=== PATIENT | male | born 1960 | race Caucasian/White ===

== ENCOUNTER 2016-07-26 15:32 | Inpatient (IN) | payer OTHER ==
[2016-07-26] VITALS (12 sets, daily range): BP systolic 88–171; BP diastolic 31–66; PULSE 80–122; RESP 16–30; O2SAT 90–95
[~2016-07-26] VITALS: Ht 200.7 cm; Wt 134.0 kg
[2016-07-26] MEDS ORDERED: 0.9% Sodium Chloride 1,000 ML IV ONE ×3 (15:43→18:15)
[2016-07-26 15:58] LABS: BASOPHILS % (AUTO) 0.2 % (0-3); EOSINOPHILS % (AUTO) 0 % (0-5); MONOCYTES % (AUTO) 4.8 % (4-12); Mean Corpuscular Hemoglobin 29.3 pg (27.0-35.0); NEUTROPHILS % (AUTO) 88.4 % (40-74); Platelet Count 152 bil/L (150-400)
--- NOTE | 2016-07-26 16:15 | ED.REPORT ---
HPI-General Illness Date of Service Jul 26, 2016 ED Provider: José Antonio Bucio MD This is a 66 year male with a history of DM sent to the emergency department from the [facility] clinic via EMS due to confusion. He was found in the [place] parking lot confused and "unsteady." Pt visited the [place] for evaluation of R foot ulceration. Pt reports fever and chills that began yesterday evening. Denies cough, nausea, vomiting, dysuria, or pain. Interview is limited due to confusion. Medical records indicate pt was admitted to [facility] on 07/07-07/12/2016 with osteomyelitis in left foot, treated surgically with left foot 5th ray resection. Treated in hospital with vancomycin and Zosyn, transitioned to Levaquin, and was discharged on Levaquin. Sent from outpatient clinic today with chills overnight and noted to be "unsteady" and with a inflamed R big toe. Nursing Notes Stated Complaint: SEPTIC Chief Complaint: General Complaint Nursing Notes Reviewed: Yes Allergies: Coded Allergies: morphine (Unverified Allergy, Intermediate, severe itching, 07/26/16) Scheduled Atorvastatin Calcium (Atorvastatin Calcium) 20 Mg Tablet 20 MG PO HS Gabapentin (Gabapentin) 600 Mg Tablet 600 MG PO TID Glipizide (Glipizide) 10 Mg Tablet 10 MG PO BID Hydrochlorothiazide (Hydrochlorothiazide) 25 Mg Tablet 25 MG PO DAILY Lisinopril (Lisinopril) 20 Mg Tablet 20 MG PO DAILY Metformin (Glucophage) 1,000 Mg Tablet 1,000 MG PO BID General Time Seen by MD: 15:43 Chief Complaint Other Hx Obtained From: Patient, EMS Arrived By: Ambulance Sudden in Onset?: Yes Onset Occurred: 1 - 15 minutes ago Symptom Duration: Since onset Severity: Current: No pain currently Pertinent Negative: Pt denies other symptoms Recent Healthcare: No recent hospitalization, Recent doctor visit Similar Sx Previous: No Past Medical History Past Medical History Reports: Diabetes mellitus Review of Systems Full Review of Systems Constitutional: Reports: Chills, Fever Cardiovascular: Denies: Chest pain GI: Denies: Abdominal pain, Nausea, Vomiting Male: Denies Dysuria Musculoskeletal: Reports: Extremity pain, Denies: Back pain Complete sys rev & neg: except as marked. Physical Exam Vital Signs Vital Signs Date Time Temp Pulse Resp B/P Pulse Ox O2 Delivery O2 Flow Rate FiO2 07/26/16 20:44 37.6 97 25 88/46 95 Nasal Cannula 1.5 07/26/16 20:06 80 07/26/16 17:30 113 27 103/31 93 Room Air 07/26/16 17:00 116 149/48 07/26/16 16:30 121 30 171/66 07/26/16 16:00 120 25 147/55 92 Nasal Cannula 2 07/26/16 15:43 39.0 122 30 150/48 90 Room Air 07/26/16 15:35 122 27 150/48 90 Room Air Initial VS: Reviewed Head / Eyes: Atraumatic, Normocephalic, PERRL ENT: Mucous membranes moist, Conjunctiva normal, No scleral icterus Neck: Supple, Non-tender, Full range of motion Cardiovascular: Regular rate & rhythm, Heart sounds normal, Intact distal pulses Abdomen / GI: Soft, Non-tender, No guarding, No rebound, No distention Extremities: Vascular intact, Neuro intact, No swelling, No tenderness Skin: Warm, Dry, No cyanosis Neurologic: Alert General/Constitutional: Awake Confused and drowsy Respiratory / Chest: No wheezing Rales / Rhonchi: Positive: Rales bilateral bases Abdomen: Non-tender, BS normoactive obese Ankle / Foot: Neurologic intact L foot has post operative changes with amputation of fifth toe, warm and neurovascularly intact. R foot: erythema at base of great and second toe, area is warm with ulcer at the base of R great toe. R foot has decreased sensation, pulses intact Interpretation & Diagnostics Interpretation & Diagnostics: NEGATIVE FOR INFLUENZA TYPE A AND B CHEST X-RAY IMPRESSION: Low volume inspiration with accentuation of pulmonary markings bilaterally. No focal consolidation. Dictated by: Rufino Perez M.D. on 07/26/2016 at 16:54 Approved by: Rufino Perez M.D. on 07/26/2016 at 16:55 R FOOT X-RAY IMPRESSION: 1. Cortical erosion and associated lucency within the medial 1st distal phalanx high suspicious for osteomyelitis. 2. Mildly displaced fracture at the base of the 1st distal phalanx medially. 3. Soft tissue swelling compatible with cellulitis given clinical history with suggestion of soft tissue gas. Dictated by: Chucho Servin M.D. on 07/26/2016 at 17:30 Approved by: Chucho Servin M.D. on 07/26/2016 at 17:33 Lab Results Interpretation Result Diagram: 07/26/16 1545 07/26/16 1545 Test 07/26/16 15:45 07/26/16 18:44 07/26/16 20:07 White Blood Count 8.6th/mm3 (3.8-10.1) Red Blood Count 4.54mil/mm3 (4.40-5.80) Hemoglobin 13.3g/dL (13.8-17.2) Hematocrit 39.5% (41.0-50.0) Mean Corpuscular Volume 87.0fL (81-100) Mean Corpuscular Hemoglobin 29.3pg (27.0-35.0) Mean Corpuscular Hemoglobin Concent 33.7% (32.0-37.0) Red Cell Distribution Width 13.3% (12.3-15.4) Platelet Count 152bil/L (150-400) Neutrophils (%) (Auto) 88.4% (40-74) Lymphocytes (%) (Auto) 6.4% (14-46) Monocytes (%) (Auto) 4.8% (4-12) Eosinophils (%) (Auto) 0% (0-5) Basophils (%) (Auto) 0.2% (0-3) Erythrocyte Sedimentation Rate 35mm/hr (0-30) Sodium Level 131mEq/L (134-144) Potassium Level 4.0mEq/L (3.5-5.2) Chloride Level 91mEq/L (97-108) Carbon Dioxide Level 18mmol/L (18-29) Blood Urea Nitrogen 18mg/dL (6-24) Creatinine 1.13mg/dL (0.76-1.27) Estimat Glomerular Filtration Rate 71mL/min (>59) Glucose Level 366mg/dL (60-99) Calcium Level 9.2mg/dL (8.5-10.1) Phosphorus Level 2.4mg/dL (2.5-4.9) Magnesium Level 1.4mg/dL (1.6-2.6) Total Bilirubin 0.6mg/dL (0.0-1.2) Aspartate Amino Transf (AST/SGOT) 20U/L (0-50) Alanine Aminotransferase (ALT/SGPT) 22U/L (0-44) Alkaline Phosphatase 79U/L (25-150) Troponin T < 0.010ug/L (0.0-0.011) Pro-B-Type Natriuretic Peptide 471.4pg/mL (0-210) Total Protein 7.3g/dL (6.4-8.4) Albumin 4.3g/dL (3.4-5.0) Urine Color Yellow (YELLOW) Urine Appearance Clear (CLEAR,HAZY) Urine pH 5.5 (5.0-8.0) Urine Specific [place] 1.025 (1.003-1.035) Urine Protein 30mg/dL (NEG,TRACE) Urine Glucose (UA) 1000mg/dL (NEGATIVE) Urine Ketones 15mg/dL (NEGATIVE) Urine Occult Blood Negative (NEGATIVE) Urine Nitrite Negative (NEGATIVE) Urine Bilirubin Negative (NEGATIVE) Urine Urobilinogen Normalmg/dL (NORMAL) Urine Leukocyte Esterase Negative (NEGATIVE) Urine RBC 0-2/hpf (0-2) Urine WBC 0-5/hpf (0-5) Urine Epithelial Cells None/hpf (NONE-MOD) Urine Crystals None seen (NONE SEEN) Urine Bacteria None/hpf (NONE-FEW) Urine Hyaline Casts None/lpf (NONE) Urine Granular Casts None seen (NONE SEEN) Urine Waxy Casts None seen (NONE SEEN) Urine Red Blood Cell Casts None seen (NONE SEEN) Urine White Blood Cell Casts None seen (NONE SEEN) Urine Mucus None seen (None Seen) Urine Trichomonas None seen (NONE SEEN) Urine Yeast None (NONE SEEN) Urinalysis Comment None Urine Culture Reflexed Not indicated Lactic Acid Level 2.3mmol/L (0.4-2.0) ECG Interpretation ECG Interpretation: sinus tachycardia at a rate of [address] depression no acute ST elevation Time: 16:31 Interpreted by: ED physician Re-Eval/Medical Decision Med Decision/Clinical Course Sepsis with R foot osteo as source. IV NS 2L bolus and then started at 250/hr. Blood cultures obtained, vanco and zosyn started. remained normotensive, Repeat lactate improved. Time of Eval: 17:45 Re-Evaluation/Progress Note: Discussed lab and imaging results. Time of Eval: 18:13 Re-Evaluation/Progress Note: Counseled on plan for admission, pt understands and agrees with plan, all questions addressed. Consultation #1: Referral / Consult Name: Fredy Brush Sung DPM Call Returned at: 19:05 Cupola Patcher Helper: Agrees with eval, Agrees with plan Note: Consult with concrete mixer operator helper Consultation #2: Referral / Consult Name: Diallo Ballesteros MD Consulted With: Hospitalist Call Returned at: 19:41 Cupola Patcher Helper: Accepts admit Counseled Regarding: Diagnosis, Lab results, Need for follow-up, Need for admission Discharge & Departure Primary Impression: Osteomyelitis of ankle or foot, right, acute Additional Impression: Sepsis Sepsis type: sepsis due to unspecified organism Qualified Code: A41.9 - Sepsis, unspecified organism Disposition: ADMITTED TO HOSPITAL Discharge Condition All VS Reviewed: Yes Condition: Stable Scribe Attestation Portions of this note were transcribed by Kris Law. I, Dr. Bucio personally performed the history, physical exam and medical decision-making; I reviewed and confirmed the accuracy of the information in the transcribed note. Signed by Marya Gardner, 07/26/2016 at 18:00. José Antonio Bucio MD Jul 26, 2016 16:15 KRIS LAW Jul 26, 2016 16:31
[2016-07-26 16:26] LABS: TROPONIN T < 0.010 ug/L (0.0-0.011)
[2016-07-26 16:36] LABS: Magnesium 1.4 mg/dL (1.6-2.6); Phosphorus 2.4 mg/dL (2.5-4.9)
[2016-07-26 16:37] LABS: ERYTHROCYTE SEDIMENTATION RATE 35 mm/hr (0-30)
--- NOTE | 2016-07-26 16:57 | DRSVH ---
PROCEDURE: X-RAY CHEST ONE VIEW, PORTABLE ([id number]) INDICATIONS: septic TECHNIQUE: One view of the chest was acquired. COMPARISON: None. FINDINGS: Surgical changes and devices: None. Lungs and pleura: No pleural effusions or pneumothorax. Lungs are clear. Mediastinum: Mediastinal contours appear normal. Heart size is normal. Bones and chest wall: No suspicious bony lesions. Overlying soft tissues appear unremarkable. IMPRESSION: Low volume inspiration with accentuation of pulmonary markings bilaterally. No focal cons olidation. Dictated by: Rufino Perez M.D. on 07/26/2016 at 16:54 Approved by: Rufino Perez M.D. on 07/26/2016 at 16:55
[2016-07-26] MEDS ORDERED: Vancomycin Inj 1,000 MG in IV Premix 1 EACH IV ONE (17:00)
[2016-07-26] MEDS ORDERED: Piperacillin-Tazo 3.375 Gm Inj 3.375 GM in Dextrose 5% Minibag Plus 50 ML IV ONE (17:00)
[2016-07-26] MEDS ORDERED: (U-500) Insulin Regluar, Human 500 Unit/mL Syringe SUBQ ONE (17:35)
--- NOTE | 2016-07-26 17:39 | DRSVH ---
PROCEDURE: X-RAY RIGHT FOOT COMPLETE, MINIMUM THREE VIEWS ([id number]) INDICATIONS: R great toe infected/ Diabetic TECHNIQUE: 3 views of the foot were acquired. COMPARISON: None. FINDINGS: Bones: Evaluation limited due to motion artifact and incomplete inclusion of the 1st distal phalanx o n the AP view. There is cortical erosion and lucency along the medial aspect of the 1st distal phala nx suspicious for osteomyelitis. There is also an associated mildly displaced fracture along the med ial aspect of the base of the 1st distal phalanx extending to the 1st interphalangeal joint. Soft tissues: There is soft tissue swelling of the great toe with suggestion of soft tissue gas demo nstrated medially. IMPRESSION: 1. Cortical erosion and associated lucency within the medial 1st distal phalanx high suspicious for osteomyelitis. 2. Mildly displaced fracture at the base of the 1st distal phalanx medially. 3. Soft tissue swelling compatible with cellulitis given clinical history with suggestion of soft ti ssue gas. Dictated by: Chucho Servin M.D. on 07/26/2016 at 17:30 Approved by: Chucho Servin M.D. on 07/26/2016 at 17:33
[2016-07-26] MEDS ORDERED: Insulin Human REGular (HUMulin-R) 100 Unit/mL 10 mL SUBQ ONE (17:50)
[2016-07-26] MEDS ORDERED: Insulin Human REGular-Omnicell 100 Unit/mL SUBQ ONE (18:25)
[2016-07-26 19:11] LABS: APPEARANCE,URINE CLEAR (CLEAR,HAZY); COLOR,URINE YELLOW (YELLOW); OCCULT BLOOD,URINE NEGATIVE (NEGATIVE); PH,URINE 5.5 (5.0-8.0); UROBILINOGEN,URINE NORMAL (NORMAL)
[2016-07-26] MEDS ORDERED: 0.9% Sodium Chloride 1,000 ML IV SCH (19:53)
[2016-07-26] MEDS ORDERED: Alum-Mag Hydrox-Simeth 30 mL Suspension PO PRN (19:55)
[2016-07-26] MEDS ORDERED: Vancomycin Dose per Pharmacist XX SCH (19:55)
[2016-07-26] MEDS ORDERED: Ondansetron 2 mg/mL 2 mL Inj IVPUSH PRN (19:55)
[2016-07-26] MEDS ORDERED: Polyethylene Glycol (PEG) 17 Gm Powder PO PRN (19:55)
[2016-07-26] MEDS ORDERED: Magnesium Sulf 4 Gm/100 mL H2O 4 GM in IV Premix 1 EACH IV ONE (20:00)
--- NOTE | 2016-07-26 20:57 | PCM.HPMED ---
Subjective Date of Service Jul 26, 2016 Primary Provider: Admitting Physician: Primary Care Physician: Other,Physician Attending Physician: Admit Status: From the Emergency Department Chief Complaint: Right foot ulceration History of Present Illness: Patient is a pleasant 66 year male with a history of DM2 and HTN, sent to the emergency department from the [facility] clinic via EMS due to confusion. He was found in the [place] parking lot confused and "unsteady." Pt visited the [place] for evaluation of R foot ulceration, which patient states was doing fine after being recently discharged from [facility] hospital, but started to swell up a day ago. Associated symptoms of fever and chills that began yesterday evening. Denies cough, nausea , vomiting, dysuria, or pain. Patient states when he had his operation on his left foot for osteomyelitis with left foot 5th ray resection, at [facility] on -07/12/2016. Treated in hospital with vancomycin and Zosyn, transitioned to Levaquin, and was discharged on 10 day course of Levaquin. At that time, they took a xray of his right foot and told him it there was no infection and thus no intervention was necessary. Patient was sent from outpatient clinic today noted for chills overnight being "unsteady" with a inflamed R big toe. Patient apparently continued to be confused upon initial arrival to [facility], mentation improved and was fully alert and oriented at the time of this interview. In the ED, vitals T39, P122, RR30, BP 150/48, 90% on RA. Labs significant for Lactic acid 4.4, ESR 35, Glu 366. R foot Xray showed "Cortical erosion and associated lucency within the medial 1st distal phalanx high suspicious for osteomyelitis." Podiatry, Dr. Brush was consulted, will see in am. Review of Systems: All ROS reviewed and negative otherwise noted in HPI. Allergies Coded Allergies: morphine (Verified Allergy, Intermediate, severe itching, 07/26/16) Home Medications Metformin 1000mg PO BID Glipizide 10mg PO BID Lisinopril 20mg PO daily HCTZ 25mg PO daily Atorvastatin 20mg PO daily Gabapentin 300mg cap, 2 caps TID Medications confirmed with patient and at home from Rx bottles PMH DM2 HTN Diabetic neuropathy Surgical History Left ankle and great toe Jhonathan 2012 Left 5th ray resection for osteomyelitis [facility] Jun 2016 Family History Mother side has DM2 Social History Hx Alcohol Use: Yes (3-4 beers a week) Hx Substance Use: No Hx Tobacco Use: Yes Smoking Status: Former Smoker (quit 5 years ago 10ppd) Living Arrangement: with Family Exam Vital Signs Vital Sign - Last Date Time Temp Pulse Resp B/P Pulse Ox O2 Delivery O2 Flow Rate FiO2 07/26/16 17:30 113 27 103/31 93 Room Air 07/26/16 16:00 2 07/26/16 15:43 39.0 Exam GEN: Alert and oriented, NAD HEENT: NC/AT, PERRL, EOMI, sclera anicteric Neck: supple with full ROM, trachea at midline CV: RRR, normal S1, S2, no murmurs, rubs or gallops, peripheral pulses intact with <3 sec cap refill Lungs: CTAB Skin: Dry, warm and intact, well healed surgical scar on medial left ankle, Significantly swollen right big toe with erythema and warmth, no rash Neuro: Loss of sensation at bilateral feet, decreased sensation at bilateral anterior shins Ext: Left 5th toe amputated, truncated left big toe Psych: normal mood and affect, normal speech Lab and Diagnostics Result Diagram: 07/26/16 1545 07/26/16 1545 X-Rays, CTs and MRIs Date of Service: 07/26/16 1543 PROCEDURE: X-RAY CHEST ONE VIEW, PORTABLE ([id number]) INDICATIONS: septic IMPRESSION: Low volume inspiration with accentuation of pulmonary markings bilaterally. No focal consolidation. Dictated by: Rufino Perez M.D. on 07/26/2016 at 16:54 Date of Service: 07/26/16 1608 PROCEDURE: X-RAY RIGHT FOOT COMPLETE, MINIMUM THREE VIEWS ([id number]) INDICATIONS: R great toe infected/ Diabetic IMPRESSION: 1. Cortical erosion and associated lucency within the medial 1st distal phalanx high suspicious for osteomyelitis 2. Mildly displaced fracture at the base of the 1st distal phalanx medially. 3. Soft tissue swelling compatible with cellulitis given clinical history with suggestion of soft tissue gas. Dictated by: Chucho Servin M.D. on 07/26/2016 at 17:30 Assessment & Plan Patient is a 66 year male with a history of DM2 and HTN, sent to the emergency department from the [facility] via EMS due to confusion. He was found in the [place] parking lot confused and "unsteady." Pt visited the [place] for evaluation of R foot ulceration, which patient states was doing fine after being recently discharged from [facility] hospital, but started to swell up a day ago. Pt reports fever and chills that began yesterday evening. Sepsis (T39, P122, RR30) with osteomyelitis of right toe as source of infection , present on admission. Acute. - BCx pending - Vancomycin and Zosyn started in ED, will continue - trend lactic acid - IVF - keep oxygen above 92% DKA, present on admission. Acute. - 4L NS given in ED - IVF Metabolic acidosis, present on admission. Acute. - Anion gap 22, mostly due to lactic acidosis, DKA present - IVF as above - trending lactic acid - high dose correctional insulin protocol Osteomyelitis of right big toe, present on admission. Acute - Xray showed "Cortical erosion and associated lucency within the medial 1st distal phalanx high suspicious for osteomyelitis. Mildly displaced fracture at the base of the 1st distal phalanx medially. Soft tissue swelling compatible with cellulitis given clinical history with suggestion of soft tissue gas." - podiatry consulted from ED, patient to be seen in am - MR foot ordered - NPO Chronic conditions: Diabetes mellitus, type 2 - metformin and glipizide held - high dose correctional insulin protocol - A1c pending (patient reports A1c of 10, 3 weeks ago) Diabetic neuropathy - continue gabapentin Hypertension - continue lisinopril and HCTZ - hold for systolic blood pressure below 130 PRNs - Acetaminophen as needed for mild pain/fever/headache - Bowel regimen as needed - Antiemetic as needed Patient admitted under inpatient status with expected length of stay greater than 2 midnights due to severity of presenting symptoms, risk of adverse event, and complexity of treatment plan. Pain Evaluation: Adequate Pain Control VTE Prophylaxis: Other (surgery tomorrow) VTE Mechanical Devices: Intermittant Pneumatic CD Resuscitation Status: CPR: Attempt Resuscitation Attending Statement The patient was seen and examined together with Dr. Degroot on 07/26 and I agree with the history, exam and plan as outlined in the note above. Stefan Degroot DO Jul 26, 2016 20:02 Diallo Ballesteros MD Jul 27, 2016 01:12
[2016-07-26] MEDS ORDERED: Glucose 40% Oral Gel 15 Gm Tube PO PRN (21:10)
[2016-07-26] MEDS ORDERED: LISI-567 PO (21:11)
[2016-07-26] MEDS ORDERED: HYDR25TA4 PO (21:11)
[2016-07-26] MEDS ORDERED: ATOR20TA65 PO (21:11)
[2016-07-26] MEDS ORDERED: METF1000 PO (21:11)
[2016-07-26] MEDS ORDERED: GABA600T2 PO (21:11)
[2016-07-26] MEDS ORDERED: GLIP10TA10 PO (21:11)
[2016-07-26] MEDS: 0.9% Sodium Chloride 1,000 ML IV SCH (21:40)
[2016-07-26] MEDS ORDERED: Insulin LISPRO 300 Unit/3 mL Inj SUBQ SCH (22:00)
[2016-07-27] VITALS (9 sets, daily range): BP systolic 116–136; BP diastolic 68–77; PULSE 94–99; RESP 16–18; O2SAT 90–97
[2016-07-27] MEDS: Sodium Chloride LOK Flush 10 mL Syringe IVFLUSH SCH ×6 (00:11→16:30)
[2016-07-27] MEDS ORDERED: GABA-502 PO (00:53)
[2016-07-27] MEDS ORDERED: 0.9% Sodium Chloride 50 ML ONE (01:17)
[2016-07-27] MEDS: Piperacillin-Tazo 3.375 Gm Inj 3.375 GM in Dextrose 5% Minibag Plus 50 ML IV SCH ×3 (01:26→17:15)
--- NOTE | 2016-07-27 01:49 | PCM.CONPHA ---
Assessment/Plan Assessment/Plan Pharmacy Kinetic Dosing Vancomycin Indication: SEPSIS WITH OSTEOMYELITIS OF RIGHT TOE Vanc goal trough: 10-15 mcg/mL Pt wt: 142.7 kg Other ABX: ZOSYN Cultures: Blood PENDING SCr: 1.13 mg/dL Assessment/Plan: - Loading dose of Vancomycin 1000 mg given in ED with additional 1500 mg given once patient reached the floor (20mg/kg dosing) -Will continue Vancomycin 2000 mg Q12H (15 mg/kg dosing) with trough scheduled prior to 4th dose on -Jul @ 0630 Pharmacy appreciates consult and will continue to monitor. Estela Beasley PharmD Jul 27, 2016 01:49
[2016-07-27] MEDS ORDERED: Glucose 40% Oral Gel 15 Gm Tube PO PRN ×2 (02:05→08:25)
[2016-07-27] MEDS ORDERED: Insulin LISPRO 300 Unit/3 mL Inj SUBQ SCH (02:30)
[2016-07-27] MEDS: 0.9% Sodium Chloride 1,000 ML IV SCH ×2 (05:54→14:55)
--- NOTE | 2016-07-27 05:59 | NUR ---
Admit/BP/Blood Sugar Pt admitted to room 2007 at around 2130, SBP low 90s, pt A&Ox3, ALST[place], bedrest d/t hypotension but moves well in bed. Pt able to answer admit questions, med rec done by pt interview and med list on faxed sheet from [place] facility. SBP remained low 90s and came up this morning to 110s-120s, pt up to BR then w/ SBA. Blood sugars mid 200s, aware, discussed starting non DKA insulin drip but instead ordered high dose sliding scale insulin w/ Q6 admin. Pt NPO in case of surgery. Frequent oral care w/ wet swabs done to help w/ dry mouth. No c/o pain, tele SR 90s.
[2016-07-27 06:44] LABS: BASOPHILS % (AUTO) 0.2 % (0-3); EOSINOPHILS % (AUTO) 0.3 % (0-5); Mean Corpuscular Hemoglobin 29.2 pg (27.0-35.0); Mean Corpuscular Volume 87.6 fL (81-100); NEUTROPHILS % (AUTO) 85.5 % (40-74); Platelet Count 138 bil/L (150-400)
[2016-07-27 07:35] LABS: Magnesium 2.3 mg/dL (1.6-2.6)
[2016-07-27] MEDS ORDERED: Insulin Human REGular Inj 100 UNIT in 0.9% Sodium Chloride-Pha MIX 100 ML IV SCH (07:36)
[2016-07-27] MEDS ORDERED: Dextrose 5% 0.45% NaCl 1,000 ML IV PRN (07:36)
[2016-07-27] MEDS: Linezolid Inj 600 MG in IV Premix 1 EACH IV SCH ×2 (09:18→20:40)
[2016-07-27] MEDS ORDERED: 0.9% Sodium Chloride 250 ML ONE (09:20)
[2016-07-27] MEDS: HYDROmorphone 1 mg/mL Inj IVPUSH PRN ×3 (10:51→20:36)
[2016-07-27] MEDS: Insulin LISPRO 300 Unit/3 mL Inj SUBQ SCH ×3 (12:04→20:52)
--- NOTE | 2016-07-27 12:59 | NUR ---
Podiatry/Diet Dr. Brush in to evaluate pt's R great toe; states infection is likely in the bone, ordered MRI; OR tomorrow or Monday, possible amputation of R great toe. Diabetic diet order placed per Dr. Morales. VSS.
--- NOTE | 2016-07-27 13:10 | PCM.CHPPOD ---
Subjective Date of service Jul 27, 2016 History of Present Illness 56-year-old male was admitted last evening for confusion, fever and diabetic foot infection. Patient states that he developed a blister on the right hallux as a result of new shoes approximately 3 weeks ago which subsequently became more severe and in the past week noted some swelling and redness in the great toe. He subsequently became systemically ill feeling in the past 2-3 days prompting his admission. Patient denies any recognized trauma to the right foot , he is aware that he is severely neuropathic and has undergone multiple surgeries on the left foot at the [facility] in [place] as result of ulcerations and osteomyelitis. Patient has had the first metatarsophalangeal joint resected and fifth digit amputated on the left. He states he is feeling improved since being admitted. He has a renewed appetite, no fever or chills at this time. Patient is seen in the presence of his Kristine. Patient is currently unemployed Reason for Consultation Confusion, fever ,diabetic foot infection right Allergy Allergies: Coded Allergies: morphine (Verified Allergy, Intermediate, severe itching, 07/26/16) Medications Atorvastatin Calcium (Atorvastatin Calcium) 20 Mg Tablet 20 MG PO HS Gabapentin (Gabapentin) 300 Mg Capsule 900 MG PO TID Glipizide (Glipizide) 10 Mg Tablet 10 MG PO BIDAC Hydrochlorothiazide (Hydrochlorothiazide) 25 Mg Tablet 25 MG PO DAILY Lisinopril (Lisinopril) 20 Mg Tablet 20 MG PO DAILY Metformin (Glucophage) 1,000 Mg Tablet 1,000 MG PO BID Past Medical History Surgeries: Yes (left elbow/hips, left amputation) Medical History: Surgical History: Social History Hx Alcohol Use: No Hx Substance Use: No Hx Tobacco Use: Yes Smoking Status: Former Smoker (quit 5 years ago 10ppd) Podiatry Consult Exam Vital Signs Vital Sign - Last Date Time Temp Pulse Resp B/P Pulse Ox O2 Delivery O2 Flow Rate FiO2 07/27/16 08:53 37.6 97 18 120/75 96 Room Air 07/26/16 21:34 1.5 Intake and Output 07/26/16 07/26/16 07/27/16 Cumulative From/Thru 15:00 23:00 07:00 07/26/16 15:43 - 07/27/16 06:08 Intake Total 1000 ml 1637 ml 2637 ml Output Total 550 ml 550 ml Balance 1000 ml 1087 ml 2087 ml Intake Oral 0 ml 0 ml IV Total 1000 ml 1637 ml 2637 ml Output Urine Total 550 ml 550 ml # Bowel Movements 0 0 Result Diagram: 07/27/1628 07/27/1628 Lab Test 07/26/16 15:45 07/26/16 18:44 07/27/16 00:45 07/27/16 06:28 Erythrocyte Sedimentation Rate 35mm/hr (0-30) Hemoglobin A1c 9.9% (4.8-5.6) Phosphorus Level 2.4mg/dL (2.5-4.9) Total Bilirubin 0.6mg/dL (0.0-1.2) Aspartate Amino Transf (AST/SGOT) 20U/L (0-50) Alanine Aminotransferase (ALT/SGPT) 22U/L (0-44) Alkaline Phosphatase 79U/L (25-150) Troponin T < 0.010ug/L (0.0-0.011) Pro-B-Type Natriuretic Peptide 471.4pg/mL (0-210) Total Protein 7.3g/dL (6.4-8.4) Albumin 4.3g/dL (3.4-5.0) Urine Color Yellow (YELLOW) Urine Appearance Clear (CLEAR,HAZY) Urine pH 5.5 (5.0-8.0) Urine Specific [place] 1.025 (1.003-1.035) Urine Protein 30mg/dL (NEG,TRACE) Urine Glucose (UA) 1000mg/dL (NEGATIVE) Urine Ketones 15mg/dL (NEGATIVE) Urine Occult Blood Negative (NEGATIVE) Urine Nitrite Negative (NEGATIVE) Urine Bilirubin Negative (NEGATIVE) Urine Urobilinogen Normalmg/dL (NORMAL) Urine Leukocyte Esterase Negative (NEGATIVE) Urine RBC 0-2/hpf (0-2) Urine WBC 0-5/hpf (0-5) Urine Epithelial Cells None/hpf (NONE-MOD) Urine Crystals None seen (NONE SEEN) Urine Bacteria None/hpf (NONE-FEW) Urine Hyaline Casts None/lpf (NONE) Urine Granular Casts None seen (NONE SEEN) Urine Waxy Casts None seen (NONE SEEN) Urine Red Blood Cell Casts None seen (NONE SEEN) Urine White Blood Cell Casts None seen (NONE SEEN) Urine Mucus None seen (None Seen) Urine Trichomonas None seen (NONE SEEN) Urine Yeast None (NONE SEEN) Urinalysis Comment None Urine Culture Reflexed Not indicated Lactic Acid Level 1.6mmol/L (0.4-2.0) White Blood Count 10.0th/mm3 (3.8-10.1) Red Blood Count 3.87mil/mm3 (4.40-5.80) Hemoglobin 11.3g/dL (13.8-17.2) Hematocrit 33.9% (41.0-50.0) Mean Corpuscular Volume 87.6fL (81-100) Mean Corpuscular Hemoglobin 29.2pg (27.0-35.0) Mean Corpuscular Hemoglobin Concent 33.3% (32.0-37.0) Red Cell Distribution Width 13.6% (12.3-15.4) Platelet Count 138bil/L (150-400) Neutrophils (%) (Auto) 85.5% (40-74) Lymphocytes (%) (Auto) 6.5% (14-46) Monocytes (%) (Auto) 7.0% (4-12) Eosinophils (%) (Auto) 0.3% (0-5) Basophils (%) (Auto) 0.2% (0-3) Sodium Level 135mEq/L (134-144) Potassium Level 4.3mEq/L (3.5-5.2) Chloride Level 100mEq/L (97-108) Carbon Dioxide Level 21mmol/L (18-29) Blood Urea Nitrogen 16mg/dL (6-24) Creatinine 0.93mg/dL (0.76-1.27) Estimat Glomerular Filtration Rate 89mL/min (>59) Glucose Level 223mg/dL (60-99) Calcium Level 7.9mg/dL (8.5-10.1) Magnesium Level 2.3mg/dL (1.6-2.6) Diagnostics Positive blood culture, identification pending., X-ray suggestive of osteomyelitis right hallux. Exam Lower Extremities: Right: Edema localized Extremity pink Extremity warm Lower Extremity Pulses: Palpable: Left Dorsalis Pedis Right Dorsalis Pedis Absent: Left Posterior Tibal Right Posterior Tibal Additional Information: Lower family reexam on the left shows a shortened flail hallux and amputated fifth digit, no open lesions, ulcerations or evidence of infection on the left. The right foot exhibits distal forefoot erythema edema and hyperemia. There is a large plantar medial hyperkeratotic lesion of the hallux at the IPJ level which is exuding a scant amount of purulent exudate. Upon sharp debridement of the hyperkeratotic tissue there is noted to be an 8 x 8 mm full-thickness ulceration which probes to bone. The toe is edematous but nonfluctuant and there does not appear to be any significant deep space abscess or proximal tracking of infection. Lesser digits show intact skin, skin of the heel is intact there are no other open lesions. There does appear to be some regression of erythema since patient admission. Upon review of x-ray there is ostial lysis of the distal tuft noted primarily on the oblique view however this does not correlate strongly with the site of the ulcer which is at the interphalangeal joint. I feel MRI is indicated, this apparently has been ordered, will await results to proceed with surgical planning. Assessment & Plan Assessment Osteomyelitis right hallux, cellulitis right hallux, severe peripheral neuropathy bilateral. Problems: Plan Discussed findings and probable need for hallux amputation with patient and his and they are understanding having been through a multitude of surgeries on the left foot previously. At this visit I did sharply debrided the hyperkeratotic lesion,, created an egress for purulent exudate, the site is copiously irrigated with saline, packed with gauze and dry dressing applied. Patient will continue on vancomycin and Zosyn pending results of deep swab cultures cultures which were taken today. I do not feel there is any urgency to present to the operating room today, therefore patient may eat and would anticipate scheduling as an add-on or early Monday pending OR availability. All patient questions were answered, he and his expressed understanding of the necessity for amputation and are comfortable with this eventuality. VTE Prophylaxis: Other (surgery tomorrow) VTE Mechanical Devices: Intermittant Pneumatic CD Fredy Brush DPM Jul 27, 2016 13:10
--- NOTE | 2016-07-27 15:45 | NUR ---
NUTRITION ASSESSMENT Assess: 56 yo M w/ DKA and left foot wound. Pt w/ multiple recent surgeries for his left foot. Per podiatry, pt will need a hallux amputation to be done or Monday. Pt states for a few days prior to admission he was eating very little. Him and his deny noticing any wt changes. He says his appetite has improved since being admitted. PMHx: DM 2, HTN, Diabetic neuropathy LABS: GLu 223, A1c 9.9, Ca 7.9 MEDICATIONS: Reviewed. 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 INTERVENTION: 1) Diabetic education provided 2/ and patient referred to [facility] outpatient diabetes program MONITOR/EVALUATE: PO intake, Labs, Wt, Nutrition status, POC. Will follow per moderate nutrition risk guidelines.
--- NOTE | 2016-07-27 17:17 | PCM.PNMED ---
Subjective Date of Service Jul 27, 2016 Subjective Patient is a pleasant 66 year male with a history of DM2 and HTN, right foot ulceration, sent to the emergency department from the [facility] via EMS due to confusion. Patient admitted for treatment of right distal first metatarsal osteomyelitis. Hospital Day 1 Overnight: no acute events reported\\ Today: patient reported that he has fever and chills that began yesterday evening, increased pain, redness, and swelling associated with a right big toe ulceration, and worsening confusion and gait instability today that has since cleared up. Patient denies fever, chills, confusion, diarrhea, dysuria, change in vision, myalgias. ROS negative except for mentioned above. Exam Vital Signs Vital Sign - Last Date Time Temp Pulse Resp B/P Pulse Ox O2 Delivery O2 Flow Rate FiO2 07/27/16 05:42 116/68 07/27/16 03:45 37.5 94 16 96 Room Air 07/26/16 21:34 1.5 Intake and Output 07/26/16 07/26/16 07/27/16 Cumulative From/Thru 15:00 23:00 07:00 07/26/16 15:43 - 07/27/16 06:08 Intake Total 1000 ml 1637 ml 2637 ml Output Total 550 ml 550 ml Balance 1000 ml 1087 ml 2087 ml Intake Oral 0 ml 0 ml IV Total 1000 ml 1637 ml 2637 ml Output Urine Total 550 ml 550 ml # Bowel Movements 0 0 Exam GEN: Alert and oriented to person place and time, no acute distress HEENT: NC/AT, PERRL, EOMI, sclera anicteric Neck: supple with full ROM, trachea at midline, no JVD CV: RRR, normal S1, S2, no murmurs, rubs or gallops, peripheral pulses intact with <3 sec cap refill Lungs: Clear to auscultation bilaterally, no rhonchi, wheezes, rubs heard Skin: Dry, warm and intact, well healed surgical scar on medial left ankle, Significantly swollen right big toe with erythema and warmth, with overlying erythema to ankle Neuro: Loss of sensation at bilateral feet, decreased sensation at bilateral anterior shins Ext: Left 5th toe amputated, truncated left big toe Psych: normal mood and affect, normal speech IVs and Medications Medications Reviewed: Medications were reviewed in detail Lab and Diagnostics Result Diagram: 07/26/16 1545 07/26/16 1545 X-Rays, CTs and MRIs Date of Service: 07/26/16 1543 PROCEDURE: X-RAY CHEST ONE VIEW, PORTABLE ([id number]) INDICATIONS: septic IMPRESSION: Low volume inspiration with accentuation of pulmonary markings bilaterally. No focal consolidation. Dictated by: Rufino Perez M.D. on 07/26/2016 at 16:54 Date of Service: 07/26/16 1608 PROCEDURE: X-RAY RIGHT FOOT COMPLETE, MINIMUM THREE VIEWS ([id number]) INDICATIONS: R great toe infected/ Diabetic IMPRESSION: 1. Cortical erosion and associated lucency within the medial 1st distal phalanx high suspicious for osteomyelitis 2. Mildly displaced fracture at the base of the 1st distal phalanx medially. 3. Soft tissue swelling compatible with cellulitis given clinical history with suggestion of soft tissue gas. Dictated by: Chucho Servin M.D. on 07/26/2016 at 17:30 Assessment & Plan Patient is a pleasant 66 year male with a history of DM2 and HTN, right foot ulceration, sent to the emergency department from the [place] [facility] via EMS due to confusion. Patient admitted for treatment of right distal first metatarsal osteomyelitis, sepsis, metabolic acidosis, hyperglycemia non DKA. Hospital Day 1 1. Severe Sepsis due to cellulitis/osteomyelitis of right toe as source of infection/strept bactremeia, present on admission. Acute. - Initial Vitals (T39, P122, RR30) ,initial LA 4.4,initial encephalopathy - Blood cultures positive for gram positive cocci, likely staph A - Continue Zosyn - Start Linezolid - ID consulted we appreciate their time and recommendations - Continued to trend lactic acid, initially elevated 4.4, trend Q2hrs 2.5, 2.3, 1.8, 1.6 - Continue IVF NS @ 125 mls/hr Q8 2. Osteomyelitis of right big toe, present on admission. Acute - Xray showed "Cortical erosion and associated lucency within the medial 1st distal phalanx high suspicious for osteomyelitis. Mildly displaced fracture at the base of the 1st distal phalanx medially. Soft tissue swelling compatible with cellulitis given clinical history with suggestion of soft tissue gas." - podiatry consulted from ED, patient to be seen in am - MR foot ordered, pending - Keep patient NPO - Podiatry debrided the wound, purulent exudate noted,wound irrigated with saline and packed with gauze and dry dressing applied - Podiatry plans to take patient to OR tomorrow for surgical debridement and exploration 3.Metabolic acidosis, present on admission. resolved - Anion gap 22 on admission, mostly due to lactic acidosis caused by infection - Repeat labs show AG of 14 - Continued to trend lactic acid, as above - Continue antibiotics as above 4. Hyperglycemia non DKA, present on admission. Improved - DKA not likely marginal ketones present, improvement of respirations with pain control and antibiotics, high anion gap more likely related to infectious process. - Continue with high dose correctional scale Humalog 4 units preprandial and 10 units Lantus HS - Continue to monitor and adjust insulin requirements as needed - Goal blood glucose <200 Chronic conditions: 5.Uncontrolled Diabetes mellitus type 2, chronic, ongoing - metformin and glipizide held - high dose correctional insulin protocol - A1c pending (patient reports A1c of 10, 3 weeks ago) 6.Diabetic neuropathy - continue gabapentin - continue to monitor 7.Hypertension - continue lisinopril and HCTZ - hold for systolic blood pressure below 130 PRNs - Acetaminophen as needed for mild pain/fever/headache - Bowel regimen as needed - Antiemetic as needed CODE STATUS: FULL CODE Disposition: likely discharge to home with home health or SNF 2-3 days pending surgery/amputaion. VTE Prophylaxis: Other (surgery tomorrow) VTE Mechanical Devices: Intermittant Pneumatic CD Resuscitation Status: CPR: Attempt Resuscitation Attending Statement patient seen and examined with Dr Hidalgo .I agree with the history,exam, impression and plan as outlined above DRE HIDALGO DO Jul 27, 2016 06:52 Kaushik Hinton MD Jul 27, 2016 20:13
--- NOTE | 2016-07-27 18:20 | NUR ---
toe pain Patient received IV dilaudid for toe pain just prior to me assuming care at 1515hrs today. since then he's rated his pain 4/10; tolerable. MRI completed. patient resting comfortably. continue with plan of care.
--- NOTE | 2016-07-27 19:14 | DRSVH ---
PROCEDURE: MRI FOREFOOT RIGHT WITH AND WITHOUT CONTRAST ([id number]) INDICATIONS: right great toe osteomyelitis TECHNIQUE: Noncontrast sagittal T1 spin echo and T2 fast spin echo with fat saturation, long-axis T1 spin echo a nd T2 fast spin echo with fat saturation; short-axis T1 spin echo, proton density fast spin echo, and T2 fast spin echo with fat saturation through the forefoot. Post-contrast short axis, long axis, an d sagittal T1 spin echo with fat saturation through the forefoot. COMPARISON: [facility], CR, XR FOOT 3VW RT, 07/26/2016, 16:18. FINDINGS: Image quality: Excellent. Bones and joints: Decreased T1 signal and increased T1 and T2 signal as well as lateral postcontrast enhancement noted in the base of the first distal phalanx. There there is deformity of the base of the first distal phalange possibly related to remote trauma.. The sesamoid bones appear in expected p ositions, without internal edema. No metatarsophalangeal joint degeneration. No intraosseous lesion s. Soft tissues: Soft tissue edema is noted throughout the knee first toe. No soft tissue abscess iden tified. There is diffuse soft tissue enhancement involving the first toe. There is a soft tissue de fect extending from the medial skin surface of the first toe to the base of the first distal phalange . The visualized plantar foot muscles demonstrate normal signal and bulk. Visualized flexor and ext ensor tendons appear intact, without tenosynovitis. No soft tissue ganglion cysts or bursal fluid co llections. Sagittal images demonstrate no evidence for plantar plate tears. IMPRESSION: 1. Findings compatible with early osteomyelitis involving the first distal phalange. 2. Deformity of the first distal phalange possibly related to remote trauma. 3. First right toe cellulitis without evidence of abscess. 3. Soft tissue defect involving the medial margin of the right first toe. Please correlate with phy sical findings. Dictated by: Anjelica Jimenez MD, PhD on 07/27/2016 at 19:03 Approved by: Anjelica Jimenez MD, PhD on 07/27/2016 at 19:12
[2016-07-27] MEDS ORDERED: Insulin GLARgine 100 Unit/mL Syringe SUBQ SCH (21:00)
[2016-07-28] VITALS (12 sets, daily range): BP systolic 119–161; BP diastolic 61–84; PULSE 87–104; RESP 14–22; O2SAT 91–95
[2016-07-28] MEDS: Sodium Chloride LOK Flush 10 mL Syringe IVFLUSH SCH ×6 (00:30→16:38)
[2016-07-28] MEDS: 0.9% Sodium Chloride 1,000 ML IV SCH ×5 (00:38→23:18)
[2016-07-28] MEDS: Piperacillin-Tazo 3.375 Gm Inj 3.375 GM in Dextrose 5% Minibag Plus 50 ML IV SCH ×3 (00:39→16:47)
[2016-07-28] MEDS: HYDROmorphone 1 mg/mL Inj IVPUSH PRN ×4 (05:44→18:26)
--- NOTE | 2016-07-28 06:29 | NUR ---
Pain/NPO Pt c/o headache and toe pain 6-02/02, given Dilaudid which he stated was very effective, this morning given Dilaudid once more for 5-6/10 head and toe pain. Pt now sleeping, appears comfortable. Per notes pt possibly add on to surgery , verified w/ , pt kept NPO after midnight. Wet swabs for dry mouth. Pt slept well between care interventions.
[2016-07-28] MEDS ORDERED: Vancomycin Serum Trough XX ONE (06:30)
[2016-07-28] MEDS ORDERED: Insulin GLARgine 100 Unit/mL Syringe SUBQ SCH (08:30)
[2016-07-28] MEDS: Linezolid Inj 600 MG in IV Premix 1 EACH IV SCH (08:33)
[2016-07-28] MEDS: Insulin LISPRO 300 Unit/3 mL Inj SUBQ SCH ×4 (08:47→23:16)
[2016-07-28 08:53] LABS: Mean Corpuscular Hemoglobin 28.8 pg (27.0-35.0); Mean Corpuscular Volume 87.5 fL (81-100)
[2016-07-28] MEDS ORDERED: Lactated Ringer's 1,000 ML IV ONE (10:49)
--- NOTE | 2016-07-28 11:50 | NUR ---
OR Pt remains NPO this morning, received morning medications with a sip of water. Left for OR at 1140. Dsg to R foot c/d/i.
--- NOTE | 2016-07-28 12:10 | PCM.PNPOD ---
Subjective Date of Service: Jul 28, 2016 Date of Service: Jul 28, 2016 Visit Information: Reason for Visit Sepsis,Diabetic Foot Surgery/Surgery Date Post-Op Day # Date of Admission: Jul 26, 2016 at 21:06 Hospital Day # Subjective: 56-year-old male is seen in the company of his for preoperative consultation regarding amputation of osteomyelitic right hallux. Patient states constitutionally is feeling well no fever chills or malaise however feels the right foot may be somewhat more red than yesterday. Patient's MRI was positive for osteomyelitis of the distal phalanx. White count is improving. Objective Vital Sign - Last Date Time Temp Pulse Resp B/P Pulse Ox O2 Delivery O2 Flow Rate FiO2 07/28/16 09:00 37.2 94 16 127/77 93 Nasal Cannula 1.00 Intake and Output 07/27/16 07/27/16 07/28/16 Cumulative From/Thru 15:00 23:00 07:00 07/26/16 15:43 - 07/28/16 06:47 Intake Total 2309 ml 2517 ml 7463 ml Output Total 2450 ml 2650 ml 5650 ml Balance -141 ml -133 ml 1813 ml Intake Oral 840 ml 600 ml 1440 ml IV Total 1469 ml 1917 ml 6023 ml Output Urine Total 2450 ml 2650 ml 5650 ml # Bowel Movements 0 0 Result Diagram: 07/28/16 0740 07/28/16 0740 Lab Test 07/26/16 15:45 07/26/16 18:44 07/27/16 00:45 07/27/16 06:28 Erythrocyte Sedimentation Rate 35mm/hr (0-30) Hemoglobin A1c 9.9% (4.8-5.6) Phosphorus Level 2.4mg/dL (2.5-4.9) Total Bilirubin 0.6mg/dL (0.0-1.2) Aspartate Amino Transf (AST/SGOT) 20U/L (0-50) Alanine Aminotransferase (ALT/SGPT) 22U/L (0-44) Alkaline Phosphatase 79U/L (25-150) Troponin T < 0.010ug/L (0.0-0.011) Pro-B-Type Natriuretic Peptide 471.4pg/mL (0-210) Total Protein 7.3g/dL (6.4-8.4) Albumin 4.3g/dL (3.4-5.0) Urine Color Yellow (YELLOW) Urine Appearance Clear (CLEAR,HAZY) Urine pH 5.5 (5.0-8.0) Urine Specific [place] 1.025 (1.003-1.035) Urine Protein 30mg/dL (NEG,TRACE) Urine Glucose (UA) 1000mg/dL (NEGATIVE) Urine Ketones 15mg/dL (NEGATIVE) Urine Occult Blood Negative (NEGATIVE) Urine Nitrite Negative (NEGATIVE) Urine Bilirubin Negative (NEGATIVE) Urine Urobilinogen Normalmg/dL (NORMAL) Urine Leukocyte Esterase Negative (NEGATIVE) Urine RBC 0-2/hpf (0-2) Urine WBC 0-5/hpf (0-5) Urine Epithelial Cells None/hpf (NONE-MOD) Urine Crystals None seen (NONE SEEN) Urine Bacteria None/hpf (NONE-FEW) Urine Hyaline Casts None/lpf (NONE) Urine Granular Casts None seen (NONE SEEN) Urine Waxy Casts None seen (NONE SEEN) Urine Red Blood Cell Casts None seen (NONE SEEN) Urine White Blood Cell Casts None seen (NONE SEEN) Urine Mucus None seen (None Seen) Urine Trichomonas None seen (NONE SEEN) Urine Yeast None (NONE SEEN) Urinalysis Comment None Urine Culture Reflexed Not indicated Lactic Acid Level 1.6mmol/L (0.4-2.0) Neutrophils (%) (Auto) 85.5% (40-74) Lymphocytes (%) (Auto) 6.5% (14-46) Monocytes (%) (Auto) 7.0% (4-12) Eosinophils (%) (Auto) 0.3% (0-5) Basophils (%) (Auto) 0.2% (0-3) Magnesium Level 2.3mg/dL (1.6-2.6) Test 07/28/16 07:40 White Blood Count 7.5th/mm3 (3.8-10.1) Red Blood Count 3.75mil/mm3 (4.40-5.80) Hemoglobin 10.8g/dL (13.8-17.2) Hematocrit 32.8% (41.0-50.0) Mean Corpuscular Volume 87.5fL (81-100) Mean Corpuscular Hemoglobin 28.8pg (27.0-35.0) Mean Corpuscular Hemoglobin Concent 32.9% (32.0-37.0) Red Cell Distribution Width 13.6% (12.3-15.4) Platelet Count 123bil/L (150-400) Sodium Level 137mEq/L (134-144) Potassium Level 4.0mEq/L (3.5-5.2) Chloride Level 101mEq/L (97-108) Carbon Dioxide Level 23mmol/L (18-29) Blood Urea Nitrogen 8mg/dL (6-24) Creatinine 0.56mg/dL (0.76-1.27) Estimat Glomerular Filtration Rate 160mL/min (>59) Glucose Level 246mg/dL (60-99) Calcium Level 8.0mg/dL (8.5-10.1) Vancomycin Level Trough < 2.0mcg/mL Diagnostics MRI shows osteomyelitis distal phalanx right hallux Exam Lower Extremities: Right: Edema localized Extremity pink Extremity warm Lower Extremity Pulses: Palpable: Left Dorsalis Pedis Right Dorsalis Pedis Absent: Left Posterior Tibal Right Posterior Tibal Podiatry WOUND : Wound Location/Description Reexam right foot shows persistent somewhat intensified erythema of the distal lateral right forefoot, the hallux does appear slightly dusky. Moderate forefoot edema noted. The dorsal IPJ of the hallux does appear slightly fluctuant clinically, no gross purulent exudate, no significant malodor. DP pulses readily palpable PT pulse trace capillary refill of the lesser digits 4- 5 seconds. Remainder of pedal skin is intact. Assessment & Plan Impression Osteomyelitis distal phalanx right hallux, neuropathic ulceration right hallux, cellulitis of the right forefoot which does not appear to be responding dramatically to current antibiotic therapy, although patient's white count has improved. Problems: Plan Patient requires amputation of the right hallux which may be transphalangeal but possibly disarticulation at the MPJ if the quality of the proximal phalanx is questionable or there is intraoperative suspicion for osteomyelitis of this segment. An attempt will be made at primary closure however patient is aware wound made need to be left open pending improvement in the infection followed by delayed primary closure and/or VAC therapy. Patient is also were aware this is a limb threatening condition, and that his chronically elevated blood sugars inhibit normal healing. He and his expressed understanding particularly since they have been through numerous foot surgeries on the right, previously. Informed consents are reviewed and signed and all questions answered. Patient is scheduled for this procedure at 12 PM on 07/27/2016. VTE Prophylaxis: Other (surgery tomorrow) Fredy Brush DPM Jul 28, 2016 12:10
[2016-07-28] MEDS ORDERED: Lactated Ringer's 1,000 ML IV SCH (12:20)
[2016-07-28] MEDS ORDERED: fentaNYL-PF 50 mCg/mL 2 mL Inj IVPUSH PRN (12:20)
[2016-07-28] MEDS ORDERED: Phenylephrine 10,000 mCg/mL Inj IVPUSH PRN (12:20)
[2016-07-28] MEDS ORDERED: Lactated Ringer's 500 ML IV PRN (12:20)
[2016-07-28] MEDS ORDERED: Dexamethasone 4 mg/mL Inj IVPUSH PRN (12:20)
[2016-07-28] MEDS ORDERED: Ondansetron 2 mg/mL 2 mL Inj IVPUSH PRN (12:20)
[2016-07-28] MEDS ORDERED: EPHEDrine Sulfate 50 mg/mL Inj IVPUSH PRN (12:20)
--- NOTE | 2016-07-28 12:20 | PCM.HPANE ---
Patient Data Date of Service: Jul 28, 2016 ([id number]) Surgeon Admitting Provider:Diallo Ballesteros MD Attending Provider:Diallo Ballesteros MD Primary Care Physician:Other,Physician Other Provider:VitalyPr Brent Reason for Visit Sepsis,Diabetic Foot Ht/WT & BMI Height (Feet): 6 Height (Inches): 7.00 Weight (Kilograms): 142.700 Body Mass Index 35.32 Allergies Coded Allergies: morphine (Verified Allergy, Intermediate, severe itching, 07/26/16) Past Anesthesia History Anesthesia History: Denies:: Anesthesia Reactions Diabetes History Hx Diabetes?: Yes Current Bedside Blood Glucose: 251 MRSA MRSA: No Medications Hypertension Medication: Yes Home Meds Incl Beta Maggi: No Reported Medications Gabapentin 300 Mg [id number] Mg PO TID Ref 0 07/27/16 Atorvastatin Calcium 20 Mg [id number] Mg PO HS Ref 0 07/26/16 Hydrochlorothiazide 25 Mg [id number] Mg PO DAILY 30 Days Ref 0 07/26/16 Lisinopril 20 Mg [id number] Mg PO DAILY 30 Days Ref 0 07/26/16 Glipizide 10 Mg [id number] Mg PO BIDAC 30 Days 07/26/16 Metformin (Glucophage)1,000 Mg Tablet1,000 Mg PO BID Ref 0 07/26/16 Discontinued Reported Medications Gabapentin 600 Mg [id number] Mg PO TID Ref 0 07/26/16 History History of ENT Problems?: No Hx of Heart Problems?: Yes Cardiovascular History: Positive for:: Hypertension Denies:: Cardiac Surgery Chest Pain Congestive Heart Failure Edema Heart Murmur Irregular Heartbeat Pacemaker Thrombophlebitis Hx of Respiratory Problem?: Yes Respiratory History: Positive for:: Pneumonia Denies:: Asthma COPD Chest Surgery Dyspnea Emphysema Hemoptysis Tuberculosis Hx Neurologic Problems?: No Hx of GI Problems?: No Hx of Problems?: No Male Hx: Denies:: Prostate Problems Scrotal Mass Testicular Surgery Hx Musculoskeletal Problems?: Yes Musculoskeletal History: Positive for:: Joint Replacement (bilateral hips) Denies:: Back Injury Musculoskeletal Trauma Hx of Psycho/Social Problems?: No Hx Surgeries?: Yes (left elbow/hips, left amputation) Hx Any Other Health Problems?: Yes Other History: Positive for:: Hospitalization (surgeries) Denies:: Cancer Thyroid Disease History Blood Transfusions: Positive for:: Accept Blood Products? Denies:: Blood Transfusions Hx Diabetes: YesBedside Blood Glucose: 251 Hx Alcohol Use: NoHx Substance Use: No Smoking Status: Former Smoker (quit 5 years ago 10ppd) Have You Smoked inLast 12 mo: No Stop/Bang Treated for Sleep Apnea?: No Do You Have a CPAP Machine?: No S-Snoring: Do You Snore Loudly: No T-Tired: feel tired, fatigued: No O-Obsered: Observed not breath: No P-Blood Pressure: treated: Yes B- Body Mass Index > 35 kg/m2: Yes A- Age over 50: Yes N- Neck Large Circumference: No G- Gender Male: Yes SHAUNNA Total Score: 4 SHAUNNA Risk Assessment: High Risk, =/>3 Yes Risk Assessment Category Category 1A: Patient has history of documented sleep apnea, and HAS NOT received any narcotic, sedative or anesthesia administration during this stay. Category 1B: Patient has history of documented sleep apnea, and HAS received any narcotic , sedative or anesthesia administration during this stay Category 2: Patient has SUSPECTED Obstructive Sleep Apnea, and HAS received any narcotic , sedative or anesthesia administration during this stay. Category 3: Patient has SUSPECTED Obstructive Sleep Apnea and HAS NOT received narcotic, sedative or anesthesia administration during this stay. Category 4: Outpatient in Procedural Areas with known sleep apnea or who screen positive for High Risk via the STOP/BANG questionnaire. Exam Exam Vital Signs Vital Signs Date Time Temp Pulse Resp B/P Pulse Ox O2 Delivery O2 Flow Rate FiO2 07/28/16 09:00 37.2 94 16 127/77 93 Nasal Cannula 1.00 07/28/16 08:30 Supplement Oxygen 07/28/16 07:02 101 General Appearance: Alert, Oriented X3 HEENT/AIRWAY: MP 2 (multiple missing) Lungs: Clear to Auscultation Heart: Exam Unremarkable Meds/Labs/Diagnostics Admission Meds Current Medications Atorvastatin Calcium (Lipitor) 20 mg HS PO Last administered on 07/27/16 20:44 ; Start 07/27/16 at 21:00 Insulin Glargine 10 unit 10 unit HS SUBQ Last administered on 07/27/16 20:49; Start 07/27/16 at 21:00; Stop 07/28/16 at 08:15; Status DC Lactated Ringer's (Lr) 1,000 ml @ ud STK-MED ONCE IV Last administered on 10:49; Start 07/28/16 at 10:49; Stop 07/28/16 at 10:50; Status DC Bedside Blood Glucose: 251 Labs Test 07/26/16 15:45 07/26/16 18:44 07/27/16 00:45 07/27/16 06:28 Erythrocyte Sedimentation Rate 35mm/hr (0-30) Hemoglobin A1c 9.9% (4.8-5.6) Phosphorus Level 2.4mg/dL (2.5-4.9) Total Bilirubin 0.6mg/dL (0.0-1.2) Aspartate Amino Transf (AST/SGOT) 20U/L (0-50) Alanine Aminotransferase (ALT/SGPT) 22U/L (0-44) Alkaline Phosphatase 79U/L (25-150) Troponin T < 0.010ug/L (0.0-0.011) Pro-B-Type Natriuretic Peptide 471.4pg/mL (0-210) Total Protein 7.3g/dL (6.4-8.4) Albumin 4.3g/dL (3.4-5.0) Urine Color Yellow (YELLOW) Urine Appearance Clear (CLEAR,HAZY) Urine pH 5.5 (5.0-8.0) Urine Specific [place] 1.025 (1.003-1.035) Urine Protein 30mg/dL (NEG,TRACE) Urine Glucose (UA) 1000mg/dL (NEGATIVE) Urine Ketones 15mg/dL (NEGATIVE) Urine Occult Blood Negative (NEGATIVE) Urine Nitrite Negative (NEGATIVE) Urine Bilirubin Negative (NEGATIVE) Urine Urobilinogen Normalmg/dL (NORMAL) Urine Leukocyte Esterase Negative (NEGATIVE) Urine RBC 0-2/hpf (0-2) Urine WBC 0-5/hpf (0-5) Urine Epithelial Cells None/hpf (NONE-MOD) Urine Crystals None seen (NONE SEEN) Urine Bacteria None/hpf (NONE-FEW) Urine Hyaline Casts None/lpf (NONE) Urine Granular Casts None seen (NONE SEEN) Urine Waxy Casts None seen (NONE SEEN) Urine Red Blood Cell Casts None seen (NONE SEEN) Urine White Blood Cell Casts None seen (NONE SEEN) Urine Mucus None seen (None Seen) Urine Trichomonas None seen (NONE SEEN) Urine Yeast None (NONE SEEN) Urinalysis Comment None Urine Culture Reflexed Not indicated Lactic Acid Level 1.6mmol/L (0.4-2.0) Neutrophils (%) (Auto) 85.5% (40-74) Lymphocytes (%) (Auto) 6.5% (14-46) Monocytes (%) (Auto) 7.0% (4-12) Eosinophils (%) (Auto) 0.3% (0-5) Basophils (%) (Auto) 0.2% (0-3) Magnesium Level 2.3mg/dL (1.6-2.6) Test 07/28/16 07:40 White Blood Count 7.5th/mm3 (3.8-10.1) Red Blood Count 3.75mil/mm3 (4.40-5.80) Hemoglobin 10.8g/dL (13.8-17.2) Hematocrit 32.8% (41.0-50.0) Mean Corpuscular Volume 87.5fL (81-100) Mean Corpuscular Hemoglobin 28.8pg (27.0-35.0) Mean Corpuscular Hemoglobin Concent 32.9% (32.0-37.0) Red Cell Distribution Width 13.6% (12.3-15.4) Platelet Count 123bil/L (150-400) Sodium Level 137mEq/L (134-144) Potassium Level 4.0mEq/L (3.5-5.2) Chloride Level 101mEq/L (97-108) Carbon Dioxide Level 23mmol/L (18-29) Blood Urea Nitrogen 8mg/dL (6-24) Creatinine 0.56mg/dL (0.76-1.27) Estimat Glomerular Filtration Rate 160mL/min (>59) Glucose Level 246mg/dL (60-99) Calcium Level 8.0mg/dL (8.5-10.1) Vancomycin Level Trough < 2.0mcg/mL Plan Impression Patient chart reviewed, patient interviewed and anesthestic plan with risks, benefits, and alternatives discussed, and informed consent obtained. NPO Status: >8hrs ASA Physical Status: ASA3 Severe Disease Anesthetic Plan: GA Bene/Risks/Altern/Consents: Yes HP Complete Prior to Induction: Yes Ubaldo Saravia MD Jul 28, 2016 12:19
[2016-07-28] MEDS ORDERED: Bupivacaine-MPF 0.5% 30 mL Inj INJ ONE (12:28)
[2016-07-28] MEDS ORDERED: fentaNYL-PF 50 mCg/mL 2 mL Inj ONE (12:41)
--- NOTE | 2016-07-28 13:12 | PCM.ANEP1 ---
Post Anesthesia Phase 1 PACU Phase 1 Assessment Date of Service: Jul 28, 2016 ([id number]) Vital Signs 119/67, 94%, 90, 36.4, 16 Vital Signs Date Time Temp Pulse Resp B/P Pulse Ox O2 Delivery O2 Flow Rate FiO2 07/28/16 09:00 37.2 94 16 127/77 93 Nasal Cannula 1.00 07/28/16 08:30 Supplement Oxygen 07/28/16 07:02 101 Anesthetic Administered: GA Level of Alertness: Awake, talking ALSTON's with Equal Strength: Yes Pain: No Pain Scale Score: 0 Oxygen Delivery: Room Air Lungs: Clear to Auscultation Dermatome Level: Full Sensation Summary uneventful sedation. tolerated well. Ubaldo Saravia MD Jul 28, 2016 13:12
--- NOTE | 2016-07-28 13:12 | PCM.ANEP2 ---
Post Anesthesia Evaluation ASA/CMS Post Anesthesia VS in Patient's Normal Range?: Yes Resp Stable; Airway Patent?: Yes CV Function & Hydration Stable: Yes Mental Status Recovered?: Yes Pain control Satisfactory?: Yes N/V Control Satisfactory?: Yes Ubaldo Saravia MD Jul 28, 2016 13:12
[2016-07-28] MEDS ORDERED: Propofol 10,000 mCg/mL 20 mL Inj ONE (13:17)
[2016-07-28] MEDS ORDERED: Ondansetron 2 mg/mL 2 mL Inj ONE (13:17)
[2016-07-28] MEDS ORDERED: Insulin LISPRO 300 Unit/3 mL Inj IV ONE ×2 (13:21→13:50)
--- NOTE | 2016-07-28 13:27 | PCM.PODPO ---
Podiatry Operative Report Date of Service: Jul 28, 2016 ([id number]) Date of Service Jul 28, 2016 Pre Operative Diagnosis Osteomyelitis right hallux, neuropathic ulcer right hallux, cellulitis right forefoot. 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 Surgical timeout was observed and upon initiation of monitored anesthesia care the right forefoot was anesthetized via a Nolasco block utilizing 10 cc 5% Marcaine plain. A well-padded pneumatic ankle tourniquet was applied but not utilized intraoperatively. Extremity was prepped and draped in the usual aseptic manner and attention directed to the right hallux which was edematous, mildly dusky, moderately malodorous. Dorsal and plantar full-thickness [place] semi-elliptical incisions were made at the level of the proximal phalanx. Dissection continued sharp and blunt dissection cauterizing superficial vessels. There was noted to be yoly purulence tracking dorsally along the extensor tendon as well as involving the interphalangeal joint. Subcutaneous dissection was performed exposing the proximal phalanx which did exhibit a dark sanchez appearance. Decision was made at this point to proceed with that disarticulation amputation. Sharp dissection continued proximally where the extensor and flexor tendons were sectioned and the collateral ligaments at the first metatarsophalangeal joint were transected as well as the dorsal and plantar capsular tissues. Sesamoids were left in situ. There was noted to be consistent sanguinous exudation during the procedure which was stayed with Bovie and direct pressure and did not necessitate inflation of the tourniquet. The entire digit was removed from the surgical field, specimen from the proximal phalangeal head was sent for ulcer and sensitivity and the remainder sent to pathology for gross and microscopic exam. The site was copiously irrigated, redundant skin flaps were remodeled to provide optimal cosmetic result without undue flap tension. Site was then copiously irrigated with gentamicin saline solution and a tissues were reapproximated with several 4. 0 Vicryl sutures to reduce space and risk for hematoma, skin and subcutaneous tissues of the flaps were reapproximated and closed with 4-0 nylon. There was noted to be good perfusion of the flap margins upon closure. The foot was cleansed with antibiotic solution, iodoform dressing was applied followed by a noncompressive fluffed gauze bandage. The patient left the operating suite in apparently satisfactory condition there were no complications. Grafts, Implants: None Complications There were no periprocedural complications identified. Condition Stable Anesthetic Administered: GA Drains: None Catheters: None Output, Estimated Blood Loss: 20 Blood Admin during surgery: No Surgical Cast or Splint: None Surgical Specimen Removed: Yes Specimen sent to Pathology: Yes Post Operative Plan Patient will return to the second floor, continue current parenteral antibiotics , monitor condition of the foot with possible discharge to home in 1-2 days if cellulitis regresses and wound appears to be healing primarily. Fredy Brush DPM Jul 28, 2016 13:27
--- NOTE | 2016-07-28 14:21 | DRSVH ---
PROCEDURE: X-RAY RIGHT FOOT COMPLETE, MINIMUM THREE VIEWS ([id number]) INDICATIONS: immediate post-op TECHNIQUE: 3 views of the foot were acquired. COMPARISON: [facility], CR, XR FOOT 3VW RT, 07/26/2016, 16:18. FINDINGS: Bones: Patient status post amputation of the first digit to the level of first metatarsal. No fractur e or dislocation. Soft tissues: No tibiotalar joint effusion. Achilles tendon appears normal. IMPRESSION: Status post first toe amputation. Dictated by: Anjelica Jimenez MD, PhD on 07/28/2016 at 14:19 Approved by: Anjelica Jimenez MD, PhD on 07/28/2016 at 14:20
--- NOTE | 2016-07-28 14:37 | NUR ---
Social Work: Screen D: Per EMR review, pt is a 56 year old male admitted for sepsis, diabetic foot. PCP is listed as other. Pt has VA insurance/benefit with no listed Medicare or additional insurance. NOK Is Kristine Garcia, , . Advanced directives information provided to pt. Readmit score is low, 2/8. Per H&P and progress notes, pt likely to require OR and may require skilled rehab at time of discharge. [employer] requested INFORMATION TECHNOLOGY MANAGER provide referrals to local [place] contracted facilities. Pt lives in an apartment in [place] with his spouse. A: Pt who was previously I at baseline. P: Evolving; INFORMATION TECHNOLOGY MANAGER proving referrals to local [place] contracted SNFs in anticipation of pt's needs. [employer] to continue to follow IRVING Gaspar
--- NOTE | 2016-07-28 15:12 | PCM.PNMED ---
Subjective Date of Service Jul 28, 2016 Subjective Patient is a pleasant 66 year male with a history of DM2 and HTN, right foot ulceration, sent to the emergency department from the [place] [facility] via EMS due to confusion. Patient admitted for treatment of right distal first metatarsal osteomyelitis. Hospital Day 2 Post op Day 1 Overnight: no acute events reported Today: Patient reports that he slept well, however his pain continue to breakthrough about 30 minutes before the next dose of pain medication becomes available. Patient is scheduled to go to the OR later toady. Patient denies fever, chills, confusion, diarrhea, dysuria, change in vision, myalgias. ROS negative except for mentioned above. Exam Vital Signs Vital Sign - Last Date Time Temp Pulse Resp B/P Pulse Ox O2 Delivery O2 Flow Rate FiO2 07/28/16 07:02 101 07/28/16 03:09 37.3 16 124/74 93 Nasal Cannula 1.00 Intake and Output 07/27/16 07/27/16 07/28/16 Cumulative From/Thru 15:00 23:00 07:00 07/26/16 15:43 - 07/28/16 06:47 Intake Total 2309 ml 2517 ml 7463 ml Output Total 2450 ml 2650 ml 5650 ml Balance -141 ml -133 ml 1813 ml Intake Oral 840 ml 600 ml 1440 ml IV Total 1469 ml 1917 ml 6023 ml Output Urine Total 2450 ml 2650 ml 5650 ml # Bowel Movements 0 0 Exam GEN: Alert and oriented to person place and time, no acute distress HEENT: NC/AT, PERRL, EOMI, sclera anicteric Neck: supple with full ROM, trachea at midline, no JVD CV: RRR, normal S1, S2, no murmurs, rubs or gallops, peripheral pulses intact with <3 sec cap refill Lungs: Clear to auscultation bilaterally, no rhonchi, wheezes, rubs heard Skin: Dry, warm and intact, well healed surgical scar on medial left ankle, post surgical wound of right foot is clean dry, intact and dressed. Neuro: Loss of sensation at bilateral feet, decreased sensation at bilateral anterior shins Ext: Left 5th toe amputated, truncated left big toe Psych: normal mood and affect, normal speech IVs and Medications Medications Reviewed: Medications were reviewed in detail Lab and Diagnostics Result Diagram: 07/27/16 0628 07/27/16 0628 X-Rays, CTs and MRIs PROCEDURE: X-RAY CHEST ONE VIEW, PORTABLE ([id number]) INDICATIONS: septic IMPRESSION: Low volume inspiration with accentuation of pulmonary markings bilaterally. No focal consolidation. Dictated by: Rufino Perez M.D. on 07/26/2016 at 16:54 Date of Service: 07/26/16 1608 PROCEDURE: X-RAY RIGHT FOOT COMPLETE, MINIMUM THREE VIEWS ([id number]) INDICATIONS: R great toe infected/ Diabetic IMPRESSION: 1. Cortical erosion and associated lucency within the medial 1st distal phalanx high suspicious for osteomyelitis 2. Mildly displaced fracture at the base of the 1st distal phalanx medially. 3. Soft tissue swelling compatible with cellulitis given clinical history with suggestion of soft tissue gas. Dictated by: Chucho Servin M.D. on 07/26/2016 at 17:30 Right Foot MRI IMPRESSION: 1. Findings compatible with early osteomyelitis involving the first distal phalange. 2. Deformity of the first distal phalange possibly related to remote trauma. 3. First right toe cellulitis without evidence of abscess. 3. Soft tissue defect involving the medial margin of the right first toe. Please correlate with physical findings. Dictated by: Anjelica Jimenez MD, PhD on 07/27/2016 at 19:03 Approved by: Anjelica Jimenez MD, PhD on 07/27/2016 at 19:12 Assessment & Plan Patient is a pleasant 66 year male with a history of DM2 and HTN, right foot ulceration, sent to the emergency department from the [place] via EMS due to confusion. Patient admitted for treatment of right distal first metatarsal osteomyelitis, sepsis, metabolic acidosis, hyperglycemia non DKA. Hospital Day 1 1.Osteomyelitis of right big toe s/p amputation 07/28/16, present on admission. Acute - Xray showed "Cortical erosion and associated lucency within the medial 1st distal phalanx high suspicious for osteomyelitis. Mildly displaced fracture at the base of the 1st distal phalanx medially. Soft tissue swelling compatible with cellulitis given clinical history with suggestion of soft tissue gas." - podiatry consulted from ED, patient to be seen in am - MR foot ordered, signs of advancing osteomyelitis of 1st distal phalanx of right foot - s/p amputaion today 07/28/16 - Advance diet per Podiatry recommendations - Podiatry debrided the wound 07/27, purulent exudate noted,wound irrigated with saline and packed with gauze and dry dressing applied 2. Severe Sepsis due to cellulitis/osteomyelitis of right toe as source of infection/strept bactremeia, present on admission. Improved - Initial Vitals (T39, P122, RR30) ,initial LA 4.4,initial encephalopathy - Blood cultures positive for gram positive cocci, likely staph A - Continue Zosyn - discontinued Linezolid -echo requested,will consider FANTA if bacteremia persists -will repeat blood culture in am - ID consulted we appreciate their time and recommendations - Trended lactic acid, initially elevated 4.4, trend Q2hrs 2.5, 2.3, 1.8, 1.6 - Hold IV NS as patient tolerate PO intake 3.Metabolic acidosis, present on admission. resolved - Anion gap 22 on admission, mostly due to lactic acidosis caused by infection - Repeat labs show AG of 14 - Continued to trend lactic acid, as above - Continue antibiotics as above 4. Hyperglycemia non DKA, present on admission. Improved - DKA not likely marginal ketones present, improvement of respirations with pain control and antibiotics, high anion gap more likely related to infectious process. - Continue with high dose correctional scale Humalog 4 units preprandial and 10 units Lantus HS - Continue to monitor and adjust insulin requirements as needed - Goal blood glucose <200 Chronic conditions: 5.Uncontrolled Diabetes mellitus type 2, chronic, ongoing - metformin and glipizide held - high dose correctional insulin protocol - A1c pending (patient reports A1c of 10, 3 weeks ago) 6.Diabetic neuropathy - continue gabapentin - continue to monitor 7.Hypertension - continue lisinopril and HCTZ - hold for systolic blood pressure below 130 PRNs - Acetaminophen as needed for mild pain/fever/headache - Bowel regimen as needed - Antiemetic as needed CODE STATUS: FULL CODE Disposition: likely discharge to home with home health or SNF 2-3 days pending sensitivity. VTE Prophylaxis: Other (surgery tomorrow) VTE Mechanical Devices: Intermittant Pneumatic CD Resuscitation Status: CPR: Attempt Resuscitation Attending Statement patient seen and examined with Dr Hidalgo .I agree with the history,exam, impression and plan as outlined above DRE HIDALGO DO Jul 28, 2016 07:26 Kaushik Hinton MD Jul 28, 2016 18:34
--- NOTE | 2016-07-28 17:11 | NUR ---
Post-OP/Transfer Pt returned from OR this afternoon, RLE with surgical dsg, c/d/i. RLE elevated on pillows. Pt states he did not have sensation to toes at baseline, unable to feel light touch on assessment; cap refill 2 seconds, toes warm. VSS, pt on 2L NC with SpO2 93-95%. Tolerating general diabetic diet, no nausea. Report given to Doris Alba RN on OSC. Pt to transfer to room 1003. Addendum: 07/28/16 at 1916 by TOM ALBA RN Oriented to room and call light. BC drawn by melvina. Silvino dickerson. Pt and comfortable at this time. Plan is to transition or oral pain meds tonight.
--- NOTE | 2016-07-28 17:49 | CONS ---
[address] [address] CONSULTATION REPORT PATIENT: MAURISIO MANCUSO : 1960 MR#: [id number] ADMIT: 07/26/2016 JOB ID: [id number] DATE OF SERVICE: 07/28/2016 INFECTIOUS DISEASE CONSULTATION: I thank Dr. Hidalgo for this timely consult. REASON FOR CONSULT: Bacteremic osteomyelitis, right great toe, in a diabetic gentleman. HISTORY OF PRESENT ILLNESS: The patient is a 56-year-old gentleman with about a 10-year history of diabetes who also has underlying hypertension. He was admitted to this facility after he was found to be confused and febrile in the parking lot of the [facility] across the street. The relevant back story is that in mid June the patient was admitted to the [facility] [place] for several days for amputation of his left 5th toe due to a diabetic foot infection. He did well and was discharged home to complete a course of Levaquin. While he was getting the Levaquin he started to notice some pain in his right great toe which worsened over the several days leading up to his emergency department visit and admission on July 26. The [facility] and told that the right great toe did not look that bad and to simply protect it with some special shoes, which he had been provided, but it continued to worsen and to become more red, swollen, and to actually have some drainage. It was for these and other problems he was being seen at the [facility] on July 26, but he did not make the appointment because he developed acute confusion, fever, and chills. The patient now has no memory of these events. Since admission and stabilization he has returned to his normal mentation however and is able to provide the before and after part of the story but cannot remember what happened on the . His , who accompanies him in the room today, said he was very confused and unsteady on his feet with ongoing shaking chills and fever during that day when he was admitted here. He had finished his Levaquin before his admission. Subsequent to his admission here was found by radiographs and physical exam to have what appeared to be a rapidly progressive osteomyelitis of that right great toe and today was taken to the operating room for evaluation. During the course of the surgery it was found that the entire toe was involved and a disarticulating amputation was performed. Appropriate histo path and cultures were sent at the end of the surgery. We saw the patient this afternoon, sitting with his in his room postoperatively. At this point he has some minimal residual headache, but no fever and no additional chills. No more confusion. No pulmonary symptoms and no GI symptoms. He does not have a catheter in his bladder and reports no pain in his feet, which of course is part of his problem as he has insensate feet due to his severe diabetic peripheral neuropathy. PAST MEDICAL HISTORY: Diabetes times x10 years. A. Severe peripheral neuropathy. B. Status post multiple diabetic foot infections including the recent amputation left 5th toe June 2016 and right great toe July 28, 2016. SOCIAL HISTORY: The patient served in the [employer] for a few years and subsequently worked as a chef under, and later as a geriatric social worker. He is now retired because of his many medical problems. He is an ex-smoker. He does not drink alcohol. He lives with his in the [facility]. FAMILY HISTORY: No one in the patient's family, including his parents, brothers, sisters, or children, has tuberculosis, nor does his . REVIEW OF SYSTEMS: The patient still has a bit of residual headache which he attributes to caffeine withdrawal. He denies any recent visual changes. No sores in the mouth. No trouble swallowing. No stiff neck. No cough, shortness of breath, chest pain, nausea, vomiting, diarrhea, dysuria, or pain in the joints above the level of his feet. The patient notes that his feet are completely insensate and he is unaware when his feet are injured or damaged in any way. The remainder of the review of systems was negative. PHYSICAL EXAMINATION: Reveals a gentleman who was febrile to 39 degrees when he presented to the ED on the afternoon of July 26. Since then he has defervesced. Temp now 36.5, pulse 87, respiratory rate 14, blood pressure 146/63, saturating well on 2 L nasal prongs. The patient is awake, alert. Head: Without trauma. Eyes: Without conjunctivitis or conjunctival hemorrhage. Oral cavity: Without thrush or hairy leukoplakia. His teeth are in generally poor repair. His neck is without adenopathy and reasonably supple. His lungs are essentially clear. Cardiac tones regular rate and rhythm, without murmur today. Abdomen somewhat obese, soft and nontender, without organomegaly. He does not have a Ny catheter. Suprapubic is negative. He does not have suprapubic fullness or tenderness. His upper extremities are without evidence of inflammation, cellulitis, or synovitis. His knees and hips also appear normal. Both feet have excellent preserved dorsal pedal and posterior tibial pulses with reasonable capillary refill noted on the left foot. His feet are completely insensate. He has no sensation, no proprioception whatsoever. The left 5th toe has been surgically removed and the incision is very well healed. The right great toe was just removed this afternoon and of course there is a large postop dressing we did not remove. The patient's muscular development seems normal and neurologically he is intact, except for his dense peripheral neuropathy. Remainder of the physical normal. LABORATORY: Include a white count that was 8500 with left shift when he came in, now 7500. Sed rate was 35. Creatinine 0.56; it was 0.93 when he came in. LFTs were normal. A lactic acid was elevated to 4.4 when he came in, but subsequently declined very rapidly to 1.6 yesterday and has not been checked today. Urinalysis without white cells. Micro studies include 4/4 blood cultures from the growing an alpha strep which has not yet been identified. Rapid flu is negative. MRSA screen is pending. IMAGING: Included a foot MRI on the which showed osteomyelitis in the right first toe. Today's x-ray shows the absence of the first toe as it was done post amputation. IMPRESSION: This is an unfortunate gentleman with a history of multiple diabetic foot infections who very rapidly developed a very destructive osteomyelitis of his right first toe just after finishing a course of Levaquin given for the treatment of an infected and recently amputated left 5th toe. His course is relatively straightforward except for the fact that 4/4 blood cultures on admission have grown an alpha strep. This is likely related to the osteo which has been amputated but the concern is with 4/4 cultures growing viridans strep that he could have an underlying endocarditis and this will demand some evaluation. RECOMMENDATIONS: 1. The patient is currently on linezolid and Zosyn. We can drop the linezolid at this point, as there is no indication of MRSA. 2. Repeat blood culture should be done to show that his bacteremia has cleared. 3. The patient should have a transthoracic echo. Whether or not he needs a transesophageal echo will be determined as we observe him and his course. 4. This case discussed with Dr. Hidalgo of the Medicine team.
[2016-07-28] MEDS: Insulin GLARgine 100 Unit/mL Syringe SUBQ SCH (21:20)
[2016-07-29] VITALS (10 sets, daily range): BP systolic 110–132; BP diastolic 69–79; PULSE 81–102; RESP 18–20; O2SAT 94–98
[2016-07-29] MEDS: Sodium Chloride LOK Flush 10 mL Syringe IVFLUSH SCH ×6 (00:30→16:30)
[2016-07-29] MEDS: oxyCODONE-Acetamin 5-325 mg Tablet PO PRN ×6 (00:37→23:13)
[2016-07-29] MEDS: Piperacillin-Tazo 3.375 Gm Inj 3.375 GM in Dextrose 5% Minibag Plus 50 ML IV SCH ×2 (00:38→09:31)
--- NOTE | 2016-07-29 03:36 | NUR ---
Headache Patient complaining of headache with a pain score of 10/10. 1 tab of percocet given PO; upon reassessment patient states no relief. 2nd tab was given, and upon reassessment patient was sleeping and appeared comfortable. When patient awoke, he stated that his pain was much better, and that he was able to get some rest. Will continue to monitor, and continue Q 1 hour checks.
[2016-07-29 05:40] LABS: BASOPHILS % (AUTO) 0.5 % (0-3); EOSINOPHILS % (AUTO) 0.9 % (0-5); MONOCYTES % (AUTO) 11.7 % (4-12); Mean Corpuscular Hemoglobin 28.9 pg (27.0-35.0); NEUTROPHILS % (AUTO) 66.9 % (40-74); Platelet Count 123 bil/L (150-400)
--- NOTE | 2016-07-29 08:57 | PCM.PNMED ---
Subjective Date of Service Jul 29, 2016 Subjective Patient resting comfortably in bed. Exam Vital Signs Vital Sign - Last Date Time Temp Pulse Resp B/P Pulse Ox O2 Delivery O2 Flow Rate FiO2 07/29/16 07:45 81 07/29/16 04:31 36.8 20 120/69 96 Nasal Cannula 1.00 Intake and Output 07/28/16 07/28/16 07/29/16 Cumulative From/Thru 15:00 23:00 07:00 07/26/16 15:43 - 07/29/16 05:59 Intake Total 300 ml 1880 ml 1440 ml 12554 ml Output Total 30 ml 900 ml 4000 ml 14543 ml Balance 270 ml 980 ml -2560 ml 503 ml Intake Oral 820 ml 1440 ml 3700 ml IV Total 300 ml 1060 ml 7383 ml Output Urine Total 900 ml 4000 ml 73628 ml Estimated Blood Loss 30 ml 30 ml # Bowel Movements 1 0 1 Exam Constitutional: Middle-aged man in no acute distress Head: Number stuck atraumatic Chest: Clear to auscultation Cor: Regular rate and rhythm S1-S2 Abdomen: Soft nontender bowel sounds present Extremities left without any pedal edema right is splinted and dressed Neuro: Alert and oriented 3, motor strength is intact bilaterally. Lab and Diagnostics Laboratory Tests 72 Hours Test 07/26/16 15:45 07/26/16 18:34 07/26/16 18:44 07/26/16 20:07 White Blood Count 8.6th/mm3 (3.8-10.1) Red Blood Count 4.54mil/mm3 (4.40-5.80) Hemoglobin 13.3g/dL (13.8-17.2) Hematocrit 39.5% (41.0-50.0) Mean Corpuscular Volume 87.0fL (81-100) Mean Corpuscular Hemoglobin 29.3pg (27.0-35.0) Mean Corpuscular Hemoglobin Concent 33.7% (32.0-37.0) Red Cell Distribution Width 13.3% (12.3-15.4) Platelet Count 152bil/L (150-400) Neutrophils (%) (Auto) 88.4% (40-74) Lymphocytes (%) (Auto) 6.4% (14-46) Monocytes (%) (Auto) 4.8% (4-12) Eosinophils (%) (Auto) 0% (0-5) Basophils (%) (Auto) 0.2% (0-3) Erythrocyte Sedimentation Rate 35mm/hr (0-30) Sodium Level 131mEq/L (134-144) Potassium Level 4.0mEq/L (3.5-5.2) Chloride Level 91mEq/L (97-108) Carbon Dioxide Level 18mmol/L (18-29) Blood Urea Nitrogen 18mg/dL (6-24) Creatinine 1.13mg/dL (0.76-1.27) Estimat Glomerular Filtration Rate 71mL/min (>59) Glucose Level 366mg/dL (60-99) Hemoglobin A1c 9.9% (4.8-5.6) Lactic Acid Level 4.4mmol/L (0.4-2.0) 2.5mmol/L (0.4-2.0) 2.3mmol/L (0.4-2.0) Calcium Level 9.2mg/dL (8.5-10.1) Phosphorus Level 2.4mg/dL (2.5-4.9) Magnesium Level 1.4mg/dL (1.6-2.6) Total Bilirubin 0.6mg/dL (0.0-1.2) Aspartate Amino Transf (AST/SGOT) 20U/L (0-50) Alanine Aminotransferase (ALT/SGPT) 22U/L (0-44) Alkaline Phosphatase 79U/L (25-150) Troponin T < 0.010ug/L (0.0-0.011) Pro-B-Type Natriuretic Peptide 471.4pg/mL (0-210) Total Protein 7.3g/dL (6.4-8.4) Albumin 4.3g/dL (3.4-5.0) Urine Color Yellow (YELLOW) Urine Appearance Clear (CLEAR,HAZY) Urine pH 5.5 (5.0-8.0) Urine Specific Hodge 1.025 (1.003-1.035) Urine Protein 30mg/dL (NEG,TRACE) Urine Glucose (UA) 1000mg/dL (NEGATIVE) Urine Ketones 15mg/dL (NEGATIVE) Urine Occult Blood Negative (NEGATIVE) Urine Nitrite Negative (NEGATIVE) Urine Bilirubin Negative (NEGATIVE) Urine Urobilinogen Normalmg/dL (NORMAL) Urine Leukocyte Esterase Negative (NEGATIVE) Urine RBC 0-2/hpf (0-2) Urine WBC 0-5/hpf (0-5) Urine Epithelial Cells None/hpf (NONE-MOD) Urine Crystals None seen (NONE SEEN) Urine Bacteria None/hpf (NONE-FEW) Urine Hyaline Casts None/lpf (NONE) Urine Granular Casts None seen (NONE SEEN) Urine Waxy Casts None seen (NONE SEEN) Urine Red Blood Cell Casts None seen (NONE SEEN) Urine White Blood Cell Casts None seen (NONE SEEN) Urine Mucus None seen (None Seen) Urine Trichomonas None seen (NONE SEEN) Urine Yeast None (NONE SEEN) Urinalysis Comment None Urine Culture Reflexed Not indicated Test 07/26/16 22:35 07/27/16 00:45 07/27/16 06:28 07/28/16 07:40 Lactic Acid Level 1.8mmol/L (0.4-2.0) 1.6mmol/L (0.4-2.0) White Blood Count 10.0th/mm3 (3.8-10.1) 7.5th/mm3 (3.8-10.1) Red Blood Count 3.87mil/mm3 (4.40-5.80) 3.75mil/mm3 (4.40-5.80) Hemoglobin 11.3g/dL (13.8-17.2) 10.8g/dL (13.8-17.2) Hematocrit 33.9% (41.0-50.0) 32.8% (41.0-50.0) Mean Corpuscular Volume 87.6fL (81-100) 87.5fL (81-100) Mean Corpuscular Hemoglobin 29.2pg (27.0-35.0) 28.8pg (27.0-35.0) Mean Corpuscular Hemoglobin Concent 33.3% (32.0-37.0) 32.9% (32.0-37.0) Red Cell Distribution Width 13.6% (12.3-15.4) 13.6% (12.3-15.4) Platelet Count 138bil/L (150-400) 123bil/L (150-400) Neutrophils (%) (Auto) 85.5% (40-74) Lymphocytes (%) (Auto) 6.5% (14-46) Monocytes (%) (Auto) 7.0% (4-12) Eosinophils (%) (Auto) 0.3% (0-5) Basophils (%) (Auto) 0.2% (0-3) Sodium Level 135mEq/L (134-144) 137mEq/L (134-144) Potassium Level 4.3mEq/L (3.5-5.2) 4.0mEq/L (3.5-5.2) Chloride Level 100mEq/L (97-108) 101mEq/L (97-108) Carbon Dioxide Level 21mmol/L (18-29) 23mmol/L (18-29) Blood Urea Nitrogen 16mg/dL (6-24) 8mg/dL (6-24) Creatinine 0.93mg/dL (0.76-1.27) 0.56mg/dL (0.76-1.27) Estimat Glomerular Filtration Rate 89mL/min (>59) 160mL/min (>59) Glucose Level 223mg/dL (60-99) 246mg/dL (60-99) Calcium Level 7.9mg/dL (8.5-10.1) 8.0mg/dL (8.5-10.1) Magnesium Level 2.3mg/dL (1.6-2.6) Vancomycin Level Trough < 2.0mcg/mL Test 07/29/16 05:30 White Blood Count 6.4th/mm3 (3.8-10.1) Red Blood Count 3.53mil/mm3 (4.40-5.80) Hemoglobin 10.2g/dL (13.8-17.2) Hematocrit 30.7% (41.0-50.0) Mean Corpuscular Volume 87.0fL (81-100) Mean Corpuscular Hemoglobin 28.9pg (27.0-35.0) Mean Corpuscular Hemoglobin Concent 33.2% (32.0-37.0) Red Cell Distribution Width 13.3% (12.3-15.4) Platelet Count 123bil/L (150-400) Neutrophils (%) (Auto) 66.9% (40-74) Lymphocytes (%) (Auto) 19.7% (14-46) Monocytes (%) (Auto) 11.7% (4-12) Eosinophils (%) (Auto) 0.9% (0-5) Basophils (%) (Auto) 0.5% (0-3) Sodium Level 137mEq/L (134-144) Potassium Level 3.7mEq/L (3.5-5.2) Chloride Level 98mEq/L (97-108) Carbon Dioxide Level 25mmol/L (18-29) Blood Urea Nitrogen 7mg/dL (6-24) Creatinine 0.61mg/dL (0.76-1.27) Estimat Glomerular Filtration Rate 145mL/min (>59) Glucose Level 221mg/dL (60-99) Calcium Level 8.2mg/dL (8.5-10.1) Result Diagram: 07/29/16 0530 07/29/16 0530 X-Rays, CTs and MRIs PROCEDURE: X-RAY CHEST ONE VIEW, PORTABLE ([id number]) INDICATIONS: septic IMPRESSION: Low volume inspiration with accentuation of pulmonary markings bilaterally. No focal consolidation. Dictated by: Rufino Perez M.D. on 07/26/2016 at 16:54 Date of Service: 07/26/16 4647 PROCEDURE: X-RAY RIGHT FOOT COMPLETE, MINIMUM THREE VIEWS ([id number]) INDICATIONS: R great toe infected/ Diabetic IMPRESSION: 1. Cortical erosion and associated lucency within the medial 1st distal phalanx high suspicious for osteomyelitis 2. Mildly displaced fracture at the base of the 1st distal phalanx medially. 3. Soft tissue swelling compatible with cellulitis given clinical history with suggestion of soft tissue gas. Dictated by: Chucho Servin M.D. on 07/26/2016 at 17:30 Right Foot MRI IMPRESSION: 1. Findings compatible with early osteomyelitis involving the first distal phalange. 2. Deformity of the first distal phalange possibly related to remote trauma. 3. First right toe cellulitis without evidence of abscess. 3. Soft tissue defect involving the medial margin of the right first toe. Please correlate with physical findings. Dictated by: Anjelica Jimenez MD, PhD on 07/27/2016 at 19:03 Approved by: Anjelica Jimenez MD, PhD on 07/27/2016 at 19:12 Assessment & Plan Patient is a pleasant 66 year male with a history of DM2 and HTN, right foot ulceration, sent to the emergency department from the [facility] via EMS due to confusion. Patient admitted for treatment of right distal first metatarsal osteomyelitis, sepsis, metabolic acidosis, hyperglycemia non DKA. Hospital Day 1 1.Osteomyelitis of right big toe s/p amputation 07/28/16, present on admission. Acute - Xray showed "Cortical erosion and associated lucency within the medial 1st distal phalanx high suspicious for osteomyelitis. Mildly displaced fracture at the base of the 1st distal phalanx medially. Soft tissue swelling compatible with cellulitis given clinical history with suggestion of soft tissue gas." - podiatry consulted from ED, patient to be seen in am - MR foot ordered, signs of advancing osteomyelitis of 1st distal phalanx of right foot - s/p amputaion today 07/28/16 - Advance diet per Podiatry recommendations - Podiatry debrided the wound 07/27, purulent exudate noted,wound irrigated with saline and packed with gauze and dry dressing applied 2. Severe Sepsis due to cellulitis/osteomyelitis of right toe as source of infection/strept bactremeia, present on admission. Improved - Initial Vitals (T39, P122, RR30) ,initial LA 4.4,initial encephalopathy - Blood cultures positive for gram positive cocci, likely staph A - Continue Zosyn - discontinued Linezolid -echo requested,will consider FANTA if bacteremia persists -will repeat blood culture in am - ID consulted we appreciate their time and recommendations - Trended lactic acid, initially elevated 4.4, trend Q2hrs 2.5, 2.3, 1.8, 1.6 - Hold IV NS as patient tolerate PO intake -Transthoracic echocardiogram to be done later today 3.Metabolic acidosis, present on admission. resolved - Anion gap 22 on admission, mostly due to lactic acidosis caused by infection - Repeat labs show AG of 14 - Continued to trend lactic acid, as above - Continue antibiotics as above 4. Hyperglycemia non DKA, present on admission. Improved - DKA not likely marginal ketones present, improvement of respirations with pain control and antibiotics, high anion gap more likely related to infectious process. - Continue with high dose correctional scale Humalog 4 units preprandial and 10 units Lantus HS - Continue to monitor and adjust insulin requirements as needed - Goal blood glucose <200 Chronic conditions: 5.Uncontrolled Diabetes mellitus type 2, chronic, ongoing - metformin and glipizide held - high dose correctional insulin protocol - A1c pending (patient reports A1c of 10, 3 weeks ago) 6.Diabetic neuropathy - continue gabapentin - continue to monitor 7.Hypertension - continue lisinopril and HCTZ - hold for systolic blood pressure below 130 PRNs - Acetaminophen as needed for mild pain/fever/headache - Bowel regimen as needed - Antiemetic as needed CODE STATUS: FULL CODE Disposition: likely discharge to home with home health or SNF 2-3 days pending sensitivity. VTE Prophylaxis: Other (surgery tomorrow) VTE Mechanical Devices: Anti-Embolic stockings Resuscitation Status: CPR: Attempt Resuscitation Time spent 30 minutes Corie Lozada MD Jul 29, 2016 08:57
[2016-07-29] MEDS: Insulin LISPRO 300 Unit/3 mL Inj SUBQ SCH ×5 (09:30→23:20)
[2016-07-29] MEDS: 0.9% Sodium Chloride 1,000 ML IV SCH ×2 (11:43→19:53)
--- NOTE | 2016-07-29 12:52 | PROG NOTE ---
[address] [address] PROGRESS NOTE PATIENT: MAURISIO MANCUSO : 1960 MR#: [id number] ADMIT: 07/26/2016 JOB ID: [id number] DATE: 07/29/2016 INFECTIOUS DISEASE FOLLOWUP NOTE: REASON FOR FOLLOWUP: Osteomyelitis of the great toe status post amputation in the OR during this admission, with question about residual infection on the forefoot. INTERVAL HISTORY: The patient reports he is feeling fine today. No fevers, chills, or sweats. No cough, shortness of breath, nausea, vomiting, or diarrhea. He has insensate feet and therefore has no pain at the amputation site. PHYSICAL EXAMINATION: Reveals an extremely large gentleman who is 2 meters in height and 143 kg. He is afebrile, temp 36.8. He is completely comfortable and lucid today. Oral cavity negative. Lungs clear. Abdomen benign. His right foot is wrapped in a large dressing which was placed in the operating room, and which I will not remove today. There is no cellulitis above the area of the dressing however. LABORATORIES: Include a white count of 6400, platelet count 123,000. Creatinine 0.61. Micro studies are of great interest. The patient has multiple blood cultures now, 4/4 bottles from admission growing a Strep mitis which has an SHOBHA to penicillin of 0.25. His MRSA screen was negative and followup blood cultures are negative. The culture from the amputated toe is growing a Strep viridans to be identified, which I suspect will be Strep mitis. In addition, there were gram negatives seen on the Gram stain but they have not grown, which suggests they might be anaerobes or maybe aerobes that are just slow to grow. IMPRESSION: Right great toe diabetic foot infection with osteomyelitis status post amputation. Review of the operative note suggests that there was some infection at the proximal site of the amputation and for that reason I think this patient should receive a prolonged course of antibiotics. Exactly which antibiotics would be preferred here is a little bit unclear, as we still do not have final culture results, especially with regard to anaerobes and a possible gram-negative ml. RECOMMENDATIONS: 1. Will switch the Zosyn he is receiving now to a simpler regimen to include ceftriaxone plus Flagyl. 2. Because of the high-grade Strep mitis bacteremia, the patient will need an echocardiogram. If that transthoracic echocardiogram is reassuring and the valves look okay, I think we need not get a FANTA because we are probably going to treat for four weeks anyway for the possibility of some residual infection in the foot of this very compromised diabetic gentleman. If the transthoracic is worrisome for endocarditis, though, we may need a FANTA to better define the valve anatomy and see whether there is any indication for surgery. 3. I will add some Flagyl to the ceftriaxone for anaerobic coverage at a dose of 500 t.i.d. with the intention of continuing that for a couple of weeks, probably dependent on what we find. 4. I would hold off on a PICC line for at least a day or two until we have back confirmed negative blood cultures given that we started off with strep mitis in the blood. Probable home antibiotic would be ceftriaxone, but will need to wait and see on the final cultures, so I think it is reasonable to keep the patient for a day or two or three while we sort this out.
[2016-07-29] MEDS: cefTRIAXone Inj 2,000 MG in Dextrose 5% Minibag Plus 50 ML IV SCH (14:00)
--- NOTE | 2016-07-29 16:04 | NUR ---
Faxed referral to [facility] in [place] which [facility], [facility] in [place] and [facility] in [place]. MEDICAL REVIEW COORDINATOR requested to start SNF search.
--- NOTE | 2016-07-29 16:31 | DRSVH ---
[facility] [address] [place] [address] Echocardiogram Report Name: MAURISIO MANCUSO Study Date: 07/29/2016 Height: 67 in Hospital Exam Location: [facility] Weight: 309 lb Gender: Male BSA: 2.4 m2 : 1960 Age: 56 yrs Reason For Study: Endocarditis Performed By: [facility] Staff Referring Physician: ORLANDO CASTILLO Interpretation Summary Technically difficult study limits valve visualization. 1) Normal left ventricular thickness, size, wall motion, and systolic function (EF 60-65%). 2) Borderline dilated right ventricle with normal function. 3) No significant valvular abnormalities present. 4) Mildly dilated aortic root (diameter 4.1cm). 5) No prior Echo available for comparison. If clinical suspicion for endocarditis, consider FANTA. Procedure: A two-dimensional transthoracic echocardiogram with color flow and Doppler was performed. A contrast injection of Definity was performed to improve assessment of LV function. The study quality was technically adequate. There is no prior echocardiogram noted for this patient. The patient was in normal sinus rhythm during the exam. Left Ventricle: The left ventricle is normal in size, wall thickness, and systolic function without any focal wall motion abnormalities. The ejection fraction is estimated to be 60-65%. Left ventricular systolic function is normal without focal wall motion abnormalities. Assessment of diastolic parameters indicates normal left ventricular diastolic function and normal filling pressures. Right Ventricle: The right ventricle is borderline dilated. There is normal right ventricular wall thickness. The right ventricular systolic function is normal. Atria: The left atrial size is normal. The right atrium is normal in size. The interatrial septum is intact with no evidence for an atrial septal defect. Mitral Valve: The mitral valve is normal in structure and function. There is no mitral regurgitation noted. Aortic Valve: The aortic valve is normal in structure and function. There is no aortic valve stenosis. No aortic regurgitation is present. Tricuspid Valve: The tricuspid valve is normal in structure and function. There is a trace or physiologic amount of tricuspid regurgitation. Pulmonic Valve: The pulmonic valve is normal in structure and function. There is no pulmonic valvular regurgitation. Great Vessels: The aortic root is mildly dilated. The ascending aorta is at the upper limits of normal in size. The inferior vena cava was not visualized. Pericardium/ Pleura There is no pericardial effusion. There is no pleural effusion. MMode/2D Measurements & Calculations LVIDd: 5.4 cm RA long axis LVOT diam LVIDs: 3.8 cm LA A2 area: 21.7 cm FS: 30.1 % LA A4 area: 26.5 cm2 RA area AoV Opening EPSS: 0.74 cm IVSd: 0.95 cm : 24.5 cm Ao root diam LVPWd: 0.83 cm RA vol : 72.9 ml asc Aorta RA Diam: 3.6 cm : 30.0 mm2 LV berry. diameter/BSA LV sys. diameter/BSA RVD1 (basal) (cm/m^2): 2.2 (cm/m^2): 1.6 Doppler Measurements & Calculations Ao V2 max MV E max jordan MV E/A: 1.2 PA V2 max : 103.2 cm/sec : 75.3 cm/sec Med Peak E' Jordan : 81.5 cm/sec Ao max PG MV A max jordan PA mean PG : 4.3 mmHg : 61.7 cm/sec E/E' med: 8.8 Ao mean PG MV P1/2t: 45.9 msec Lat Peak E' Jordan PA Accel Time : 0.06 sec LVOT Max Jordan E/E' lat: 7.2 : 95.1 cm/sec E/e' average: 8.0 DESIRAE(I,D): 4.4 cm sev ratio MV dec time MV P1/2t max jordan Ao V2 mean LV V1 max PG : 0.16 sec : 73.7 cm/sec Ao V2 VTI: 19.4 cm LV V1 VTI MVA(P1/2t): 4.8 cm2 : 17.8 cm DESIRAE(V,D): 4.4 cm2 PA V2 mean DESIRAE indexed to BSA : 54.8 cm/sec (cm^2/m^2): 1.8 PA pr(Accel) : 49.1 mmHg Reading Physician:04:30 PM
--- NOTE | 2016-07-29 18:24 | NUR ---
Pain Patient c/o headache 7/10 most of the day. Requesting and given Percocet Q4H for headache. Ice pack on back of neck along with meds helped reduce the pain to 4/10 for a short time. notified of patients continued complaint of headache. New order written for ibuprofen given by primary RN at 1830. Call light in reach, will continue to assess headache. Addendum: 07/29/16 at 1928 by JOEY RENO RN Reviewed and agree with student nurse Jocy's note. Care continues.
[2016-07-29] MEDS: Insulin GLARgine 100 Unit/mL Syringe SUBQ SCH (22:53)
[2016-07-30] VITALS (8 sets, daily range): BP systolic 132–153; BP diastolic 72–78; PULSE 73–92; RESP 18–20; O2SAT 93–98
[2016-07-30] MEDS: Sodium Chloride LOK Flush 10 mL Syringe IVFLUSH SCH ×8 (00:30→23:43)
--- NOTE | 2016-07-30 03:19 | NUR ---
Voiding Patient was SL at approximately 2130. Patient drinking water PO with no problems. Patient has voided 2300 ml as of 319.
[2016-07-30] MEDS: 0.9% Sodium Chloride 1,000 ML IV SCH ×3 (03:53→19:53)
[2016-07-30] MEDS: Insulin LISPRO 300 Unit/3 mL Inj SUBQ SCH ×4 (08:57→23:43)
--- NOTE | 2016-07-30 09:07 | PCM.PNMED ---
Subjective Date of Service Jul 30, 2016 Subjective - No acute events over night. - Denies any new complaints - States that he wants to go home. He is able to walk with cane. Exam Vital Signs Vital Sign - Last Date Time Temp Pulse Resp B/P Pulse Ox O2 Delivery O2 Flow Rate FiO2 07/30/16 06:24 37.2 88 20 153/77 96 Nasal Cannula 1.00 Intake and Output 07/29/16 07/29/16 07/30/16 Cumulative From/Thru 15:00 23:00 07:00 07/26/16 15:43 - 07/30/16 06:11 Intake Total 1720 ml 1745 ml 25 ml 11784 ml Output Total 3450 ml 67525 ml Balance 1720 ml -1705 ml 25 ml 543 ml Intake Oral 956 ml 4656 ml IV Total 1720 ml 789 ml 25 ml 9917 ml Output Urine Total 3450 ml 81862 ml Estimated Blood Loss 30 ml # Bowel Movements 0 1 Exam Constitutional: Middle-aged man in no acute distress Head: Number stuck atraumatic Chest: Clear to auscultation Cor: Regular rate and rhythm S1-S2 Abdomen: Soft nontender bowel sounds present Extremities left without any pedal edema right is splinted and dressed Neuro: Alert and oriented 3, motor strength is intact bilaterally. Lab and Diagnostics Result Diagram: 07/29/16 0530 07/29/16 0530 X-Rays, CTs and MRIs PROCEDURE: X-RAY CHEST ONE VIEW, PORTABLE ([id number]) INDICATIONS: septic IMPRESSION: Low volume inspiration with accentuation of pulmonary markings bilaterally. No focal consolidation. Dictated by: Rufino Perez M.D. on 07/26/2016 at 16:54 Date of Service: 07/26/16 1608 PROCEDURE: X-RAY RIGHT FOOT COMPLETE, MINIMUM THREE VIEWS ([id number]) INDICATIONS: R great toe infected/ Diabetic IMPRESSION: 1. Cortical erosion and associated lucency within the medial 1st distal phalanx high suspicious for osteomyelitis 2. Mildly displaced fracture at the base of the 1st distal phalanx medially. 3. Soft tissue swelling compatible with cellulitis given clinical history with suggestion of soft tissue gas. Dictated by: Chucho Servin M.D. on 07/26/2016 at 17:30 Right Foot MRI IMPRESSION: 1. Findings compatible with early osteomyelitis involving the first distal phalange. 2. Deformity of the first distal phalange possibly related to remote trauma. 3. First right toe cellulitis without evidence of abscess. 3. Soft tissue defect involving the medial margin of the right first toe. Please correlate with physical findings. ECHO: 1) Normal left ventricular thickness, size, wall motion, and systolic function (EF 60-65%). 2) Borderline dilated right ventricle with normal function. 3) No significant valvular abnormalities present. 4) Mildly dilated aortic root (diameter 4.1cm). 5) No prior Echo available for comparison. If clinical suspicion for endocarditis, consider FANTA. Assessment & Plan 66 year male with a history of DM2 and HTN, right foot ulceration, sent to the emergency department from the [place] clinic via EMS due to confusion. Patient admitted for treatment of right distal first metatarsal osteomyelitis, sepsis, metabolic acidosis, hyperglycemia non DKA. Hospital Day 1 1.Osteomyelitis of right big toe s/p amputation 07/28/16, present on admission. Acute - Xray showed "Cortical erosion and associated lucency within the medial 1st distal phalanx high suspicious for osteomyelitis. Mildly displaced fracture at the base of the 1st distal phalanx medially. Soft tissue swelling compatible with cellulitis given clinical history with suggestion of soft tissue gas." - MRI foot revaeld signs of advancing osteomyelitis of 1st distal phalanx of right foot - s/p amputaion 07/28/16 - Podiatry debrided the wound 07/27, purulent exudate noted,wound irrigated with saline and packed with gauze and dry dressing applied 2. Severe Sepsis due to cellulitis/osteomyelitis of right toe as source of infection/strept bactremeia, present on admission. Improved - Initial Vitals (T39, P122, RR30) ,initial LA 4.4,initial encephalopathy - Blood cultures positive for strep mitis. Repeat blood cultures from 07/28 and 07/29 were negative so far. - ID consulted we appreciate their time and recommendations. Currently on Flagyl and Ceftriaxone -Transthoracic echocardiogram done yesterday: negative for vegetations. 3.Metabolic acidosis, present on admission. - resolved - Continue antibiotics as above 4. Hyperglycemia non DKA, present on admission. Improved - DKA not likely marginal ketones present, improvement of respirations with pain control and antibiotics, high anion gap more likely related to infectious process. - Continue with high dose correctional scale Humalog 4 units preprandial and 10 units Lantus HS - Continue to monitor and adjust insulin requirements as needed - Goal blood glucose <200 Chronic conditions: 5.Uncontrolled Diabetes mellitus type 2, chronic, ongoing - metformin and glipizide held - high dose correctional insulin protocol - A1c: 9.9 6.Diabetic neuropathy - continue gabapentin - continue to monitor 7.Hypertension - continue lisinopril and HCTZ - hold for systolic blood pressure below 130 PRNs - Acetaminophen as needed for mild pain/fever/headache - Bowel regimen as needed - Antiemetic as needed CODE STATUS: FULL CODE Disposition: likely discharge to home with home health today or tomorrow Pain Evaluation: Adequate Pain Control VTE Prophylaxis: Other (surgery tomorrow) VTE Mechanical Devices: Anti-Embolic stockings Resuscitation Status: CPR: Attempt Resuscitation Ramesh Mays MD Jul 30, 2016 09:07
[2016-07-30] MEDS: oxyCODONE-Acetamin 5-325 mg Tablet PO PRN ×3 (09:08→20:35)
--- NOTE | 2016-07-30 10:06 | PCM.PNPOD ---
Subjective Date of Service: Jul 29, 2016 Date of Service: Jul 29, 2016 Visit Information: Reason for Visit Sepsis,Diabetic Foot Surgery/Surgery Date Post-Op Day # 1 Date of Admission: Jul 26, 2016 at 21:06 Hospital Day # Subjective: 56-year-old nuerpoathic DM male with recent history of right hallux amputation preformed by Dr. Brush. Patient denies any pain. no new issues overnight. Previous history of multiple ulcers and surgeries involving his left foot which have all resolved. Postop General: No Complaints Gastrointestinal: Good Appetite Pain Management: PO Objective Vital Sign - Last Date Time Temp Pulse Resp B/P Pulse Ox O2 Delivery O2 Flow Rate FiO2 07/30/16 09:34 37.2 92 20 139/78 96 Nasal Cannula 1.00 Intake and Output 07/29/16 07/29/16 07/30/16 Cumulative From/Thru 15:00 23:00 07:00 07/26/16 15:43 - 07/30/16 06:11 Intake Total 1720 ml 1745 ml 25 ml 33740 ml Output Total 3450 ml 98115 ml Balance 1720 ml -1705 ml 25 ml 543 ml Intake Oral 956 ml 4656 ml IV Total 1720 ml 789 ml 25 ml 9917 ml Output Urine Total 3450 ml 22443 ml Estimated Blood Loss 30 ml # Bowel Movements 0 1 Result Diagram: 07/29/16 0530 07/29/16 0530 Lab Test 07/26/16 15:45 07/26/16 18:44 07/27/16 00:45 07/27/16 06:28 Erythrocyte Sedimentation Rate 35mm/hr (0-30) Hemoglobin A1c 9.9% (4.8-5.6) Phosphorus Level 2.4mg/dL (2.5-4.9) Total Bilirubin 0.6mg/dL (0.0-1.2) Aspartate Amino Transf (AST/SGOT) 20U/L (0-50) Alanine Aminotransferase (ALT/SGPT) 22U/L (0-44) Alkaline Phosphatase 79U/L (25-150) Troponin T < 0.010ug/L (0.0-0.011) Pro-B-Type Natriuretic Peptide 471.4pg/mL (0-210) Total Protein 7.3g/dL (6.4-8.4) Albumin 4.3g/dL (3.4-5.0) Urine Color Yellow (YELLOW) Urine Appearance Clear (CLEAR,HAZY) Urine pH 5.5 (5.0-8.0) Urine Specific [place] 1.025 (1.003-1.035) Urine Protein 30mg/dL (NEG,TRACE) Urine Glucose (UA) 1000mg/dL (NEGATIVE) Urine Ketones 15mg/dL (NEGATIVE) Urine Occult Blood Negative (NEGATIVE) Urine Nitrite Negative (NEGATIVE) Urine Bilirubin Negative (NEGATIVE) Urine Urobilinogen Normalmg/dL (NORMAL) Urine Leukocyte Esterase Negative (NEGATIVE) Urine RBC 0-2/hpf (0-2) Urine WBC 0-5/hpf (0-5) Urine Epithelial Cells None/hpf (NONE-MOD) Urine Crystals None seen (NONE SEEN) Urine Bacteria None/hpf (NONE-FEW) Urine Hyaline Casts None/lpf (NONE) Urine Granular Casts None seen (NONE SEEN) Urine Waxy Casts None seen (NONE SEEN) Urine Red Blood Cell Casts None seen (NONE SEEN) Urine White Blood Cell Casts None seen (NONE SEEN) Urine Mucus None seen (None Seen) Urine Trichomonas None seen (NONE SEEN) Urine Yeast None (NONE SEEN) Urinalysis Comment None Urine Culture Reflexed Not indicated Lactic Acid Level 1.6mmol/L (0.4-2.0) Magnesium Level 2.3mg/dL (1.6-2.6) Test 07/28/16 07:40 07/29/16 05:30 Vancomycin Level Trough < 2.0mcg/mL White Blood Count 6.4th/mm3 (3.8-10.1) Red Blood Count 3.53mil/mm3 (4.40-5.80) Hemoglobin 10.2g/dL (13.8-17.2) Hematocrit 30.7% (41.0-50.0) Mean Corpuscular Volume 87.0fL (81-100) Mean Corpuscular Hemoglobin 28.9pg (27.0-35.0) Mean Corpuscular Hemoglobin Concent 33.2% (32.0-37.0) Red Cell Distribution Width 13.3% (12.3-15.4) Platelet Count 123bil/L (150-400) Neutrophils (%) (Auto) 66.9% (40-74) Lymphocytes (%) (Auto) 19.7% (14-46) Monocytes (%) (Auto) 11.7% (4-12) Eosinophils (%) (Auto) 0.9% (0-5) Basophils (%) (Auto) 0.5% (0-3) Sodium Level 137mEq/L (134-144) Potassium Level 3.7mEq/L (3.5-5.2) Chloride Level 98mEq/L (97-108) Carbon Dioxide Level 25mmol/L (18-29) Blood Urea Nitrogen 7mg/dL (6-24) Creatinine 0.61mg/dL (0.76-1.27) Estimat Glomerular Filtration Rate 145mL/min (>59) Glucose Level 221mg/dL (60-99) Calcium Level 8.2mg/dL (8.5-10.1) Exam General: Alert, Oriented X3, Cooperative, No Acute Distress Lower Extremities: Right: Edema localized Extremity pink Extremity warm Lower Extremity Pulses: Palpable: Left Dorsalis Pedis Right Dorsalis Pedis Absent: Left Posterior Tibal Right Posterior Tibal Podiatry WOUND : Wound Location/Description right hallux amputation site wound appears well coapted with all sutures intact and in place. There is a minimal amount of lateral and plantar maceration tissue. There is no surrounding erythema. Minimal serosanguineous drainage is noted. No signs of acute infection. History of left fifth digit amputation with no noted ulcerations to the left foot, dorsal contracture of the right hallux following previous flexor hallucis longus tendon debridement Surgical Cast or Splint: None Assessment & Plan Impression Stable status post right hallux amputation Problems: Plan Patient appears to be doing quite well today his dressing was changed at this time and a Betadine moist to dry gauze dressing was applied. No further surgical intervention is necessary at this time. Patient is to remain partially weightbearing to his right heel. Continue antibiotics per Dr. Caldwell recommendation. Patient will likely be stable for discharge within the next 24 hours from a podiatry standpoint. I will revisit this patient tomorrow morning for an additional dressing change. VTE Prophylaxis: Other (surgery tomorrow) Riley Hackett DPM Jul 30, 2016 10:06
--- NOTE | 2016-07-30 10:11 | PCM.PNPOD ---
Subjective Date of Service: Jul 30, 2016 Date of Service: Jul 30, 2016 Visit Information: Reason for Visit Sepsis,Diabetic Foot Surgery/Surgery Date Post-Op Day # 2 Date of Admission: Jul 26, 2016 at 21:06 Hospital Day # Subjective: 56-year-old neuropathic diabetic male with recent right hallux amputation performed by Dr. Fredy Brush. Patient is noted to be resting comfortably in bed in no acute distress. Patient denies any new issues or complaints today Postop General: No Complaints Gastrointestinal: Good Appetite Pain Management: PO Objective Vital Sign - Last Date Time Temp Pulse Resp B/P Pulse Ox O2 Delivery O2 Flow Rate FiO2 07/30/16 09:34 37.2 92 20 139/78 96 Nasal Cannula 1.00 Intake and Output 07/29/16 07/29/16 07/30/16 Cumulative From/Thru 15:00 23:00 07:00 07/26/16 15:43 - 07/30/16 06:11 Intake Total 1720 ml 1745 ml 25 ml 62617 ml Output Total 3450 ml 52513 ml Balance 1720 ml -1705 ml 25 ml 543 ml Intake Oral 956 ml 4656 ml IV Total 1720 ml 789 ml 25 ml 9917 ml Output Urine Total 3450 ml 43460 ml Estimated Blood Loss 30 ml # Bowel Movements 0 1 Result Diagram: 07/29/16 0530 07/29/16 0530 Lab Test 07/26/16 15:45 07/26/16 18:44 07/27/16 00:45 07/27/16 06:28 Erythrocyte Sedimentation Rate 35mm/hr (0-30) Hemoglobin A1c 9.9% (4.8-5.6) Phosphorus Level 2.4mg/dL (2.5-4.9) Total Bilirubin 0.6mg/dL (0.0-1.2) Aspartate Amino Transf (AST/SGOT) 20U/L (0-50) Alanine Aminotransferase (ALT/SGPT) 22U/L (0-44) Alkaline Phosphatase 79U/L (25-150) Troponin T < 0.010ug/L (0.0-0.011) Pro-B-Type Natriuretic Peptide 471.4pg/mL (0-210) Total Protein 7.3g/dL (6.4-8.4) Albumin 4.3g/dL (3.4-5.0) Urine Color Yellow (YELLOW) Urine Appearance Clear (CLEAR,HAZY) Urine pH 5.5 (5.0-8.0) Urine Specific [place] 1.025 (1.003-1.035) Urine Protein 30mg/dL (NEG,TRACE) Urine Glucose (UA) 1000mg/dL (NEGATIVE) Urine Ketones 15mg/dL (NEGATIVE) Urine Occult Blood Negative (NEGATIVE) Urine Nitrite Negative (NEGATIVE) Urine Bilirubin Negative (NEGATIVE) Urine Urobilinogen Normalmg/dL (NORMAL) Urine Leukocyte Esterase Negative (NEGATIVE) Urine RBC 0-2/hpf (0-2) Urine WBC 0-5/hpf (0-5) Urine Epithelial Cells None/hpf (NONE-MOD) Urine Crystals None seen (NONE SEEN) Urine Bacteria None/hpf (NONE-FEW) Urine Hyaline Casts None/lpf (NONE) Urine Granular Casts None seen (NONE SEEN) Urine Waxy Casts None seen (NONE SEEN) Urine Red Blood Cell Casts None seen (NONE SEEN) Urine White Blood Cell Casts None seen (NONE SEEN) Urine Mucus None seen (None Seen) Urine Trichomonas None seen (NONE SEEN) Urine Yeast None (NONE SEEN) Urinalysis Comment None Urine Culture Reflexed Not indicated Lactic Acid Level 1.6mmol/L (0.4-2.0) Magnesium Level 2.3mg/dL (1.6-2.6) Test 07/28/16 07:40 07/29/16 05:30 Vancomycin Level Trough < 2.0mcg/mL White Blood Count 6.4th/mm3 (3.8-10.1) Red Blood Count 3.53mil/mm3 (4.40-5.80) Hemoglobin 10.2g/dL (13.8-17.2) Hematocrit 30.7% (41.0-50.0) Mean Corpuscular Volume 87.0fL (81-100) Mean Corpuscular Hemoglobin 28.9pg (27.0-35.0) Mean Corpuscular Hemoglobin Concent 33.2% (32.0-37.0) Red Cell Distribution Width 13.3% (12.3-15.4) Platelet Count 123bil/L (150-400) Neutrophils (%) (Auto) 66.9% (40-74) Lymphocytes (%) (Auto) 19.7% (14-46) Monocytes (%) (Auto) 11.7% (4-12) Eosinophils (%) (Auto) 0.9% (0-5) Basophils (%) (Auto) 0.5% (0-3) Sodium Level 137mEq/L (134-144) Potassium Level 3.7mEq/L (3.5-5.2) Chloride Level 98mEq/L (97-108) Carbon Dioxide Level 25mmol/L (18-29) Blood Urea Nitrogen 7mg/dL (6-24) Creatinine 0.61mg/dL (0.76-1.27) Estimat Glomerular Filtration Rate 145mL/min (>59) Glucose Level 221mg/dL (60-99) Calcium Level 8.2mg/dL (8.5-10.1) Exam General: Alert, Oriented X3, Cooperative, No Acute Distress Lower Extremities: Right: Edema localized Extremity pink Extremity warm Lower Extremity Pulses: Palpable: Left Dorsalis Pedis Right Dorsalis Pedis Absent: Left Posterior Tibal Right Posterior Tibal Podiatry WOUND : Wound Location/Description Right hallux amputation site incision is well coapted with sutures intact and in place there is a minimal amount of serosanguineous drainage and a minimal amount of plantar maceration tissue noted. No signs of surrounding erythema or continued infection at this time. Patient appears stable today for discharge from podiatry standpoint. A new dressing was applied today consisting of dry sterile gauze Adaptic Kerlix and a mildly compressive Hermes bandage. This dressing is to remain clean dry and intact until his follow-up visit with Dr. Brush following discharge. I have informed the patient that I would prefer he follow up with Dr. Brush July. If discharged over the weekend. Please provide patient with contact information for our office upon discharge and I have provided this information to his . Office phone number is [phone] Cadlwell recommendation for antibiotic therapy upon discharge. Patient is cleared for partial weightbearing to his right heel Podiatry will continue to follow every 48-72 hours while admitted. Surgical Cast or Splint: None Assessment & Plan VTE Prophylaxis: Other (surgery tomorrow) Riley Hackett DPM Jul 30, 2016 10:11
[2016-07-30] MEDS ORDERED: 0.9% Sodium Chloride 250 ML ONE (11:59)
[2016-07-30] MEDS: cefTRIAXone Inj 2,000 MG in Dextrose 5% Minibag Plus 50 ML IV SCH (12:04)
--- NOTE | 2016-07-30 17:56 | PROG NOTE ---
[address] [address] PROGRESS NOTE PATIENT: MAURISIO MANCUSO : 1960 MR#: [id number] ADMIT: 07/26/2016 JOB ID: [id number] DATE: 07/30/2016 INFECTIOUS DISEASE FOLLOWUP NOTE: REASON FOR FOLLOWUP: Bacteremic osteomyelitis, right great toe. INTERVAL HISTORY: The patient has been stable over the past 24 hours. He denies any fevers, chills, headache, shortness of breath, cough, nausea, or vomiting. He has no pain in his right toe at the amputation site. PHYSICAL EXAMINATION: Reveals an afebrile gentleman temperature 36.6, pulse 75, respiratory rate 18, blood pressure 141/72. He is saturating well on 1 L. Examination of the mental status reveals it to be clear. Oral cavity benign. Lungs clear. Cardiac tones without change. Abdomen benign. Right foot is dressed in a major dressing that was reapplied just hours ago by Podiatry so I am not going to remove it. I did review the Podiatry note and they think it is healing well, with minimal or no evidence of residual infection. LABORATORIES: Include white count 6400 yesterday, not repeated today. Creatinine was 0.61 yesterday. Micro studies include negative blood cultures on the and 29 of July. Back on the , when he was first admitted, we did have positive blood cultures for Strep mitis, which is penicillin intermediate at 0.25 but sensitive to ceftriaxone SHOBHA 0.5. The patient's transthoracic echo did not show evidence of endocarditis. IMPRESSION: This is an unfortunate diabetic gentleman who had a rapidly progressive infection which cost him his right great toe. At the time of amputation the mine captain noted there was some infection contiguous with the remaining foot and for that reason I think we should continue for least four weeks of IV therapy. Note that the amputation site wound grew an alpha strep which is yet to be identified, but which will probably be the same bug as the Strep mitis found in his blood cultures. There is no clinical evidence of endocarditis and a transthoracic is negative, so I do not think we need to proceed to a transesophageal echo as we are going to be giving four weeks of antibiotics anyway. RECOMMENDATIONS: 1. Ceftriaxone 2 g once a day through August 23. 2. Flagyl (metronidazole) 500 mg q. 12 p.o. through August 09, as we did not isolate any anaerobes but some were likely present. Note that I am giving a somewhat shorter course of Flagyl than ceftriaxone as I am concerned about the possibility of worsening preexisting neuropathy. 3. A PICC line will be needed and I have placed that order. 4. Orders for home health will be set up. 5. The patient should see me August 10 in clinic. 6. Note that the patient is [facility], so coordinating his home IV therapy may take a bit.
--- NOTE | 2016-07-30 18:29 | NUR ---
Headache Patient was complaining of headache. Pain has been well controlled with alternating Oxycodone and ibuprofen. Patient states he is very happy with his pain level on this combination. Plan for PICC tomorrow, IV therapy aware. Patient understands plan of care. Call light in reach, will continue to monitor. Addendum: 07/30/16 at 1925 by JOEY RENO RN Reviewed and agree with student nurse Jocy's note, care continues.
[2016-07-30] MEDS: Insulin GLARgine 100 Unit/mL Syringe SUBQ SCH (23:42)
[2016-07-31] VITALS (7 sets, daily range): BP systolic 131–155; BP diastolic 72–75; PULSE 70–84; RESP 16–20; O2SAT 94–95
[2016-07-31] MEDS: oxyCODONE-Acetamin 5-325 mg Tablet PO PRN ×4 (01:09→20:37)
[2016-07-31] MEDS: 0.9% Sodium Chloride 1,000 ML IV SCH ×3 (03:49→19:53)
--- NOTE | 2016-07-31 04:19 | NUR ---
Blood glucose Blood glucose have remained elevated through night >200 despite insulin coverage. Pt is asymptomatic, urinating high volumes. Pt also drinks large amounts of water. Headache pain well controlled with Percocet and ibuprofen prn. Has not been out of bed this shift, foot elevated. Hourly rounding ongoing.
[2016-07-31 05:30] LABS: BASOPHILS % (AUTO) 0.6 % (0-3); MONOCYTES % (AUTO) 11.2 % (4-12); Mean Corpuscular Hemoglobin 28.6 pg (27.0-35.0); Mean Corpuscular Volume 86.8 fL (81-100); NEUTROPHILS % (AUTO) 55.5 % (40-74); Platelet Count 178 bil/L (150-400)
[2016-07-31] MEDS: Sodium Chloride LOK Flush 10 mL Syringe IVFLUSH SCH ×4 (08:15→16:49)
[2016-07-31] MEDS: Insulin LISPRO 300 Unit/3 mL Inj SUBQ SCH ×4 (08:23→22:00)
--- NOTE | 2016-07-31 10:26 | DRSVH ---
PROCEDURE: X-RAY PICC LINE PLACEMENT BY NURSE ([id number]) INDICATIONS: 56 year-old male with PICC placement for antibiotics. COMPARISON: None. FINDINGS: PICC was placed by the intravenous therapy team from the left side. Fluoroscopic spot susan m demonstrates tip of PICC in the lower superior vena cava. IMPRESSION: Tip of PICC lies within the lower superior vena cava. Dictated by: Andrew Gudino M.D. on 07/31/2016 at 10:24 Approved by: Andrew Gudino M.D. on 07/31/2016 at 10:25
--- NOTE | 2016-07-31 10:45 | NUR ---
PICC suite Pt taken to PICC suite in stable condition via wheelchair with [employer]ER at 0940 for scheduled PICC placement. Pt returned to [facility] room 1003 at 1030. Pt able to stand and pivot transfer with NWB R foot. Tolerated well. Care continues.
--- NOTE | 2016-07-31 10:59 | PCM.PNMED ---
Subjective Date of Service Jul 31, 2016 Subjective - No acute events over night. - Denies any new complaints - Scheduled for PICC line placement for IV ceftriaxone. Exam Vital Signs Vital Sign - Last Date Time Temp Pulse Resp B/P Pulse Ox O2 Delivery O2 Flow Rate FiO2 07/31/16 10:04 80 07/31/16 06:13 36.6 16 131/72 94 Nasal Cannula 1.00 Intake and Output 07/30/16 07/30/16 07/31/16 Cumulative From/Thru 15:00 23:00 07:00 07/26/16 15:43 - 07/31/16 06:13 Intake Total 676 ml 1060 ml 1200 ml 84468 ml Output Total 4485 ml 3000 ml 4275 ml 65157 ml Balance -3809 ml -1940 ml -3075 ml -8281 ml Intake Oral 600 ml 1060 ml 1200 ml 7516 ml IV Total 76 ml 9993 ml Output Urine Total 4485 ml 3000 ml 4275 ml 05712 ml Estimated Blood Loss 30 ml # Bowel Movements 0 1 Exam Constitutional: Middle-aged man in no acute distress Head: Number stuck atraumatic Chest: Clear to auscultation Cor: Regular rate and rhythm S1-S2 Abdomen: Soft nontender bowel sounds present Extremities left without any pedal edema right is splinted and dressed Neuro: Alert and oriented 3, motor strength is intact bilaterally. IVs and Medications Medications Reviewed: Medications were reviewed in detail Lab and Diagnostics Result Diagram: 07/31/16 0455 07/31/16 0455 X-Rays, CTs and MRIs PROCEDURE: X-RAY CHEST ONE VIEW, PORTABLE ([id number]) INDICATIONS: septic IMPRESSION: Low volume inspiration with accentuation of pulmonary markings bilaterally. No focal consolidation. Dictated by: Rufino Perez M.D. on 07/26/2016 at 16:54 Date of Service: 07/26/16 1608 PROCEDURE: X-RAY RIGHT FOOT COMPLETE, MINIMUM THREE VIEWS ([id number]) INDICATIONS: R great toe infected/ Diabetic IMPRESSION: 1. Cortical erosion and associated lucency within the medial 1st distal phalanx high suspicious for osteomyelitis 2. Mildly displaced fracture at the base of the 1st distal phalanx medially. 3. Soft tissue swelling compatible with cellulitis given clinical history with suggestion of soft tissue gas. Dictated by: Chucho Servin M.D. on 07/26/2016 at 17:30 Right Foot MRI IMPRESSION: 1. Findings compatible with early osteomyelitis involving the first distal phalange. 2. Deformity of the first distal phalange possibly related to remote trauma. 3. First right toe cellulitis without evidence of abscess. 3. Soft tissue defect involving the medial margin of the right first toe. Please correlate with physical findings. ECHO: 1) Normal left ventricular thickness, size, wall motion, and systolic function (EF 60-65%). 2) Borderline dilated right ventricle with normal function. 3) No significant valvular abnormalities present. 4) Mildly dilated aortic root (diameter 4.1cm). 5) No prior Echo available for comparison. If clinical suspicion for endocarditis, consider FANTA. Assessment & Plan 66 year male with a history of DM2 and HTN, right foot ulceration, sent to the emergency department from the [place] [facility] via EMS due to confusion. Patient admitted for treatment of right distal first metatarsal osteomyelitis, sepsis, metabolic acidosis, hyperglycemia non DKA. 1.Osteomyelitis of right big toe s/p amputation 07/28/16, present on admission. Acute - Xray showed "Cortical erosion and associated lucency within the medial 1st distal phalanx high suspicious for osteomyelitis. Mildly displaced fracture at the base of the 1st distal phalanx medially. Soft tissue swelling compatible with cellulitis given clinical history with suggestion of soft tissue gas." - MRI foot revealed signs of advancing osteomyelitis of 1st distal phalanx of right foot - s/p amputaion 07/28/16 - Podiatry debrided the wound 07/27, purulent exudate noted,wound irrigated with saline and packed with gauze and dry dressing applied 2. Severe Sepsis due to cellulitis/osteomyelitis of right toe as source of infection/strept bactremeia, present on admission. Improved - Initial Vitals (T39, P122, RR30) ,initial LA 4.4,initial encephalopathy - Blood cultures positive for strep mitis. Repeat blood cultures from 07/28 and 07/29 were negative so far. -Transthoracic echocardiogram done yesterday: negative for vegetations. - ID consulted we appreciate their time and recommendations. Currently on Flagyl 500 mg BID oral and IV Ceftriaxone 2 gm daily. Flagyl to be continued till 08/09 and Ceftriaxone till 08/23 - He 3.Metabolic acidosis, present on admission. - resolved - Continue antibiotics as above 4. Hyperglycemia non DKA, present on admission. Improved - DKA not likely marginal ketones present, improvement of respirations with pain control and antibiotics, high anion gap more likely related to infectious process. - Continue with high dose correctional scale Humalog 4 units preprandial and 10 units Lantus HS - Continue to monitor and adjust insulin requirements as needed - Goal blood glucose <200 Chronic conditions: 5.Uncontrolled Diabetes mellitus type 2, chronic, ongoing - metformin and glipizide held - high dose correctional insulin protocol - A1c: 9.9 6.Diabetic neuropathy - continue gabapentin - continue to monitor 7.Hypertension - continue lisinopril and HCTZ - hold for systolic blood pressure below 130 PRNs - Acetaminophen as needed for mild pain/fever/headache - Bowel regimen as needed - Antiemetic as needed CODE STATUS: FULL CODE Disposition: likely discharge to home with home health tomorrow. Pain Evaluation: Adequate Pain Control VTE Prophylaxis: Other (surgery tomorrow) VTE Mechanical Devices: Anti-Embolic stockings Resuscitation Status: CPR: Attempt Resuscitation Ramesh Mays MD Jul 31, 2016 10:59
[2016-07-31] MEDS: cefTRIAXone Inj 2,000 MG in Dextrose 5% Minibag Plus 50 ML IV SCH (12:14)
--- NOTE | 2016-07-31 18:17 | NUR ---
headache/blood sugars Pt intermittently c/o headache today, medicated with prn percocet and ibuprofen and pt reports headache decreased and medications effective. Blood sugars today have been 206, 196 and 175. Pt states he is pleased to see BG improved as he is closely counting carbs with meals. Call light in reach. Frequent rounding. Care continues.
[2016-07-31] MEDS: Insulin GLARgine 100 Unit/mL Syringe SUBQ SCH (22:23)
[2016-08-01] MEDS: Sodium Chloride LOK Flush 10 mL Syringe IVFLUSH SCH ×4 (00:30→08:21)
[2016-08-01 00:56] VITALS: BP 146/78; PULSE 68; RESP 18; O2SAT 96
[2016-08-01] MEDS: 0.9% Sodium Chloride 1,000 ML IV SCH ×2 (03:53→11:53)
[2016-08-01] MEDS: oxyCODONE-Acetamin 5-325 mg Tablet PO PRN ×3 (04:18→16:25)
--- NOTE | 2016-08-01 05:43 | NUR ---
Headache Pt continues to have persistent headache. Relieved with Percocet and ibuprofen, however it continues to return after a few hours. No other significant complaints. Hourly rounding ongoing.
[2016-08-01 06:02] VITALS: BP 146/78; PULSE 78; RESP 20; O2SAT 94
[2016-08-01] MEDS: Insulin LISPRO 300 Unit/3 mL Inj SUBQ SCH ×3 (08:18→17:56)
[2016-08-01 09:15] VITALS: BP 155/84; PULSE 81; RESP 18; O2SAT 95
--- NOTE | 2016-08-01 10:11 | PCM.PNPOD ---
Subjective Date of Service: Aug 01, 2016 Date of Service: Aug 01, 2016 Visit Information: Reason for Visit Sepsis,Diabetic Foot Surgery/Surgery Date Post-Op Day # Date of Admission: Jul 26, 2016 at 21:06 Hospital Day # Subjective: 56-year-old male status post right hallux amputation is evaluated at bedside in no acute distress. Patient denies any new issues since last evaluation 48 hours ago. Patient denies any significant pain. Postop General: No Complaints Gastrointestinal: Good Appetite Pain Management: PO Objective Vital Sign - Last Date Time Temp Pulse Resp B/P Pulse Ox O2 Delivery O2 Flow Rate FiO2 08/01/16 09:15 36.7 81 18 155/84 95 Nasal Cannula 2.00 Intake and Output 07/31/16 07/31/16 08/01/16 Cumulative From/Thru 15:00 23:00 07:00 07/26/16 15:43 - 08/01/16 06:02 Intake Total 62 ml 2900 ml 33003 ml Output Total 4700 ml 19570 ml Balance 62 ml -1800 ml -21358 ml Intake Oral 2900 ml 44131 ml IV Total 62 ml 50101 ml Output Urine Total 4700 ml 31067 ml Estimated Blood Loss 30 ml # Bowel Movements 0 1 Result Diagram: 07/31/16 0455 07/31/16 0455 Lab Test 07/26/16 15:45 07/26/16 18:44 07/27/16 00:45 07/27/16 06:28 Erythrocyte Sedimentation Rate 35mm/hr (0-30) Hemoglobin A1c 9.9% (4.8-5.6) Phosphorus Level 2.4mg/dL (2.5-4.9) Total Bilirubin 0.6mg/dL (0.0-1.2) Aspartate Amino Transf (AST/SGOT) 20U/L (0-50) Alanine Aminotransferase (ALT/SGPT) 22U/L (0-44) Alkaline Phosphatase 79U/L (25-150) Troponin T < 0.010ug/L (0.0-0.011) Pro-B-Type Natriuretic Peptide 471.4pg/mL (0-210) Total Protein 7.3g/dL (6.4-8.4) Albumin 4.3g/dL (3.4-5.0) Urine Color Yellow (YELLOW) Urine Appearance Clear (CLEAR,HAZY) Urine pH 5.5 (5.0-8.0) Urine Specific [place] 1.025 (1.003-1.035) Urine Protein 30mg/dL (NEG,TRACE) Urine Glucose (UA) 1000mg/dL (NEGATIVE) Urine Ketones 15mg/dL (NEGATIVE) Urine Occult Blood Negative (NEGATIVE) Urine Nitrite Negative (NEGATIVE) Urine Bilirubin Negative (NEGATIVE) Urine Urobilinogen Normalmg/dL (NORMAL) Urine Leukocyte Esterase Negative (NEGATIVE) Urine RBC 0-2/hpf (0-2) Urine WBC 0-5/hpf (0-5) Urine Epithelial Cells None/hpf (NONE-MOD) Urine Crystals None seen (NONE SEEN) Urine Bacteria None/hpf (NONE-FEW) Urine Hyaline Casts None/lpf (NONE) Urine Granular Casts None seen (NONE SEEN) Urine Waxy Casts None seen (NONE SEEN) Urine Red Blood Cell Casts None seen (NONE SEEN) Urine White Blood Cell Casts None seen (NONE SEEN) Urine Mucus None seen (None Seen) Urine Trichomonas None seen (NONE SEEN) Urine Yeast None (NONE SEEN) Urinalysis Comment None Urine Culture Reflexed Not indicated Lactic Acid Level 1.6mmol/L (0.4-2.0) Magnesium Level 2.3mg/dL (1.6-2.6) Test 07/28/16 07:40 07/31/16 04:55 Vancomycin Level Trough < 2.0mcg/mL White Blood Count 5.2th/mm3 (3.8-10.1) Red Blood Count 3.71mil/mm3 (4.40-5.80) Hemoglobin 10.6g/dL (13.8-17.2) Hematocrit 32.2% (41.0-50.0) Mean Corpuscular Volume 86.8fL (81-100) Mean Corpuscular Hemoglobin 28.6pg (27.0-35.0) Mean Corpuscular Hemoglobin Concent 32.9% (32.0-37.0) Red Cell Distribution Width 13.1% (12.3-15.4) Platelet Count 178bil/L (150-400) Neutrophils (%) (Auto) 55.5% (40-74) Lymphocytes (%) (Auto) 25.7% (14-46) Monocytes (%) (Auto) 11.2% (4-12) Eosinophils (%) (Auto) 6.0% (0-5) Basophils (%) (Auto) 0.6% (0-3) Sodium Level 141mEq/L (134-144) Potassium Level 3.6mEq/L (3.5-5.2) Chloride Level 98mEq/L (97-108) Carbon Dioxide Level 28mmol/L (18-29) Blood Urea Nitrogen 14mg/dL (6-24) Creatinine 0.60mg/dL (0.76-1.27) Estimat Glomerular Filtration Rate 148mL/min (>59) Glucose Level 226mg/dL (60-99) Calcium Level 8.8mg/dL (8.5-10.1) Exam General: Alert, Oriented X3, Cooperative, No Acute Distress Lower Extremities: Right: Edema localized Extremity pink Extremity warm Lower Extremity Pulses: Palpable: Left Dorsalis Pedis Right Dorsalis Pedis Absent: Left Posterior Tibal Right Posterior Tibal Podiatry WOUND : Wound Location/Description Right hallux amputation site incision is well coapted with a minimal area of central wound dehiscence measuring 0.3 cm x 0.3 cm all sutures are intact and in place there is a mild amount of serosanguineous drainage minimal surrounding erythema significantly decreased from previous evaluation there is no malodor no purulent drainage noted no signs of continued infection Surgical Cast or Splint: None Assessment & Plan Impression Stable status post right hallux amputation Problems: Plan Dressing change today the incision appears to be doing quite well despite a mild amount of serosanguineous drainage noted. A Betadine soaked wet to dry gauze dressing was applied with Kerlix and a mildly compressive Hermes bandage. This patient is currently stable for transition to outpatient care from a podiatry standpoint. Upon discharge he should follow up with Dr. Fredy Brush or myself within 72 hours. Partial weight-bearing right heel with limited activity Follow Dr. Caldwell recommendations for antibiotic therapy Podiatry will continue to follow while admitted every 48-72 hours patient's dressing is to stay clean dry and intact upon discharge until follow-up in office VTE Prophylaxis: Other (surgery tomorrow) Riley Hackett DPM Aug 01, 2016 10:11
[2016-08-01 10:58] VITALS: PULSE 84
--- NOTE | 2016-08-01 11:31 | PCM.DIMED ---
Discharge Instructions Date of Service Aug 01, 2016 Dates of Hospitalization Jul 26, 2016 at 21:06 Discharge Diagnosis Discharge Diagnosis Sepsis/bacteremia from osteomyelitis of right great toe, uncontrolled diabetes Test Results CBC, hemoglobin 10.6 slight anemia, HG A1c 9.9 consistent with uncontrolled diabetes, Streptococcus mitis from blood and toe 07/26 and 07/28 respectively, right foot films cortical erosion first DIP, displaced fracture and cellulitis repeat foot film S/P first toe amputation 07/28 Diet Heart Healthy, Diabetic Activity Other (no weightbearing right foot) Call your provider Fever or Chills, Other (changing quality of drainage from 4) Patient Instructions Follow-up with podiatry within 72 hours for dressing changes. IV antibiotics daily through August 23 Follow-up Provider: Riley Hackett DPM Follow-up with PCP in: Other (72 hours) Provider: [facility] Follow-up in: Other (call) Tray Jiang MD Aug 01, 2016 11:31
[2016-08-01] MEDS ORDERED: INSLIS SUBQ (11:39)
[2016-08-01] MEDS ORDERED: OXYC1TAB24 PO (11:39)
[2016-08-01] MEDS ORDERED: SENN-133 PO (11:39)
[2016-08-01] MEDS ORDERED: IBUP-1827 PO (11:39)
[2016-08-01] MEDS ORDERED: METR500T PO (11:39)
[2016-08-01] MEDS ORDERED: POLY17PO6 PO (11:39)
[2016-08-01] MEDS ORDERED: INSU100V7 SUBQ (11:39)
--- NOTE | 2016-08-01 11:41 | PCM.DC.MED ---
Discharge Summary Date of Service Aug 01, 2016 Dates of Hospitalization Date of Hospital Admission Jul 26, 2016 at 21:06 Date of Discharge: Aug 01, 2016 Providers: Admitting Physician: Diallo Ballesteros MD Primary Care Physician: Other,Physician Attending Physician: Diallo Ballesteros MD Diagnosis at Time of Discharge Diagnosis at Time of Discharge Sepsis/bacteremia from osteomyelitis of right great toe, uncontrolled diabetes Consultations Podiatry thank you Dr.s Brush/Lew PRECIADO thanks Dr Caldwell Procedures XRay, CTs & MRIs PROCEDURE: X-RAY CHEST ONE VIEW, PORTABLE ([id number]) INDICATIONS: septic IMPRESSION: Low volume inspiration with accentuation of pulmonary markings bilaterally. No focal consolidation. Dictated by: Rufino Perez M.D. on 07/26/2016 at 16:54 Date of Service: 07/26/16 1608 PROCEDURE: X-RAY RIGHT FOOT COMPLETE, MINIMUM THREE VIEWS ([id number]) INDICATIONS: R great toe infected/ Diabetic IMPRESSION: 1. Cortical erosion and associated lucency within the medial 1st distal phalanx high suspicious for osteomyelitis 2. Mildly displaced fracture at the base of the 1st distal phalanx medially. 3. Soft tissue swelling compatible with cellulitis given clinical history with suggestion of soft tissue gas. Dictated by: Chucho Servin M.D. on 07/26/2016 at 17:30 Right Foot MRI IMPRESSION: 1. Findings compatible with early osteomyelitis involving the first distal phalange. 2. Deformity of the first distal phalange possibly related to remote trauma. 3. First right toe cellulitis without evidence of abscess. 3. Soft tissue defect involving the medial margin of the right first toe. Please correlate with physical findings. ECHO: 1) Normal left ventricular thickness, size, wall motion, and systolic function (EF 60-65%). 2) Borderline dilated right ventricle with normal function. 3) No significant valvular abnormalities present. 4) Mildly dilated aortic root (diameter 4.1cm). 5) No prior Echo available for comparison. If clinical suspicion for endocarditis, consider FANTA. ECG 12 Lead Sinus tachycardia rate 120, 2 QTc 498 ms 07/29/16 . Repol abnrm suggests ischemia, lateral leads . No previous ECG available for comparison Cardiac Echo Impression Interpretation Summary 07/29/16 Technically difficult study limits valve visualization. 1) Normal left ventricular thickness, size, wall motion, and systolic function (EF 60-65%). 2) Borderline dilated right ventricle with normal function. 3) No significant valvular abnormalities present. 4) Mildly dilated aortic root (diameter 4.1cm). 5) No prior Echo available for comparison. If clinical suspicion for endocarditis, consider FANTA. Invasive Procedures isarticulation- R MTP #1 07/28 Brief History found in the [facility] parking lot confused and "unsteady." Pt visited the [facility] for evaluation of R foot ulceration, which patient states was doing fine after being recently discharged from [facility], but started to swell up a day ago. Associated symptoms of fever and chills that began yesterday evening. Hospital Course 66 year male with a history of DM2 and HTN, right foot ulceration, sent to the emergency department from the [facility] via EMS due to confusion. Patient admitted for treatment of right distal first metatarsal osteomyelitis, sepsis, metabolic acidosis, hyperglycemia non DKA. Patient was treated with IV antibiotics grew strep mitis from his blood, wound was examined and found that there was osteomyelitis and amputation was performed 07/28 by podiatry. Patient has been seen by infectious disease, he will be covered by Rocephin another 22 days. He is being discharged on Flagyl and Rocephin and his prior antibiotic status post amputation 07/28. He has follow-up with podiatry within 72 hours thank you. Blood sugars have been a bit high over 200 I am resuming his oral hypoglycemic agents and decreasing the Lantus dose from 15 units to 8 units as his HG A1c was 9.9, and have prescribed a sliding scale 2, 4, 6, 8, 10 units starting at 200 going by 50 units of blood sugar. Patient was anxious to discharge when I met him and I see no medical indication for keeping him here in the hospital any longer. 1.Osteomyelitis of right big toe s/p amputation 07/28/16, present on admission. Acute - Xray showed "Cortical erosion and associated lucency within the medial 1st distal phalanx high suspicious for osteomyelitis. Mildly displaced fracture at the base of the 1st distal phalanx medially. Soft tissue swelling compatible with cellulitis given clinical history with suggestion of soft tissue gas." - MRI foot revealed signs of advancing osteomyelitis of 1st distal phalanx of right foot - s/p amputaion 07/28/16 - Podiatry debrided the wound 07/27, purulent exudate noted,wound irrigated with saline and packed with gauze and dry dressing applied 2. Severe Sepsis due to cellulitis/osteomyelitis of right toe as source of infection/strept bactremeia, present on admission. Improved - Initial Vitals (T39, P122, RR30) ,initial LA 4.4,initial encephalopathy - Blood cultures positive for strep mitis. Repeat blood cultures from 07/28 and 07/29 were negative so far. -Transthoracic echocardiogram done yesterday: negative for vegetations. - ID consulted we appreciate their time and recommendations. Currently on Flagyl 500 mg BID oral and IV Ceftriaxone 2 gm daily. Flagyl to be continued till 08/09 and Ceftriaxone till 08/23 3.Metabolic acidosis, present on admission. - resolved - Continue antibiotics as above 4. Hyperglycemia non DKA, present on admission. Improved - DKA not likely marginal ketones present, improvement of respirations with pain control and antibiotics, high anion gap more likely related to infectious process. - Continue with high dose correctional scale Humalog 4 units preprandial and 10 units Lantus HS - Continue to monitor and adjust insulin requirements as needed - Goal blood glucose <200 Chronic conditions: 5.Uncontrolled Diabetes mellitus type 2, chronic, ongoing - metformin and glipizide resumed on discharge 08/01 - A1c: 9.9 -Patient going out on Lantus 8 units plus his oral hypoglycemic agents plus a sliding scale 2, 4, 6, 8, 10 units starting at 200 going by 50 units of blood sugar 6.Diabetic neuropathy - continue gabapentin 7.Hypertension- uncontrolled SBP 142 -160 2/5+2/6 follow-up with primary care provider and titrate meds accordingly. - continue lisinopril and HCTZ CODE STATUS: FULL CODE Disposition: likely discharge to home with home health tomorrow. Exam Vital Signs (Last) Date Time Temp Pulse Resp B/P Pulse Ox O2 Delivery O2 Flow Rate FiO2 08/01/16 10:58 84 08/01/16 09:15 36.7 18 155/84 95 Nasal Cannula 2.00 Exam Gen.- A+ O 3 no apparent distress. White male sitting up at bedside Eyes- open conjunctiva clear, pupils equal nonicteric ENT- ears normal, nose normal Neck- supple/trach midline CVS-normal rate Lungs-normal rate no evidence of respiratory distress or accessory muscles Musc- moving 4 dressing on right lower extremity clean/dry/intact Neuro- cranial nerves II through XII intact to gross examination, nonfocal Skin- warm and dry, no rashes/lesions/wounds noted Psych- pleasant and appropriate, Test 07/26/16 15:45 07/26/16 18:44 07/27/16 00:45 07/27/16 06:28 Erythrocyte Sedimentation Rate 35mm/hr (0-30) Hemoglobin A1c 9.9% (4.8-5.6) Phosphorus Level 2.4mg/dL (2.5-4.9) Total Bilirubin 0.6mg/dL (0.0-1.2) Aspartate Amino Transf (AST/SGOT) 20U/L (0-50) Alanine Aminotransferase (ALT/SGPT) 22U/L (0-44) Alkaline Phosphatase 79U/L (25-150) Troponin T < 0.010ug/L (0.0-0.011) Pro-B-Type Natriuretic Peptide 471.4pg/mL (0-210) Total Protein 7.3g/dL (6.4-8.4) Albumin 4.3g/dL (3.4-5.0) Urine Color Yellow (YELLOW) Urine Appearance Clear (CLEAR,HAZY) Urine pH 5.5 (5.0-8.0) Urine Specific Clothier 1.025 (1.003-1.035) Urine Protein 30mg/dL (NEG,TRACE) Urine Glucose (UA) 1000mg/dL (NEGATIVE) Urine Ketones 15mg/dL (NEGATIVE) Urine Occult Blood Negative (NEGATIVE) Urine Nitrite Negative (NEGATIVE) Urine Bilirubin Negative (NEGATIVE) Urine Urobilinogen Normalmg/dL (NORMAL) Urine Leukocyte Esterase Negative (NEGATIVE) Urine RBC 0-2/hpf (0-2) Urine WBC 0-5/hpf (0-5) Urine Epithelial Cells None/hpf (NONE-MOD) Urine Crystals None seen (NONE SEEN) Urine Bacteria None/hpf (NONE-FEW) Urine Hyaline Casts None/lpf (NONE) Urine Granular Casts None seen (NONE SEEN) Urine Waxy Casts None seen (NONE SEEN) Urine Red Blood Cell Casts None seen (NONE SEEN) Urine White Blood Cell Casts None seen (NONE SEEN) Urine Mucus None seen (None Seen) Urine Trichomonas None seen (NONE SEEN) Urine Yeast None (NONE SEEN) Urinalysis Comment None Urine Culture Reflexed Not indicated Lactic Acid Level 1.6mmol/L (0.4-2.0) Magnesium Level 2.3mg/dL (1.6-2.6) Test 07/28/16 07:40 07/31/16 04:55 Vancomycin Level Trough < 2.0mcg/mL White Blood Count 5.2th/mm3 (3.8-10.1) Red Blood Count 3.71mil/mm3 (4.40-5.80) Hemoglobin 10.6g/dL (13.8-17.2) Hematocrit 32.2% (41.0-50.0) Mean Corpuscular Volume 86.8fL (81-100) Mean Corpuscular Hemoglobin 28.6pg (27.0-35.0) Mean Corpuscular Hemoglobin Concent 32.9% (32.0-37.0) Red Cell Distribution Width 13.1% (12.3-15.4) Platelet Count 178bil/L (150-400) Neutrophils (%) (Auto) 55.5% (40-74) Lymphocytes (%) (Auto) 25.7% (14-46) Monocytes (%) (Auto) 11.2% (4-12) Eosinophils (%) (Auto) 6.0% (0-5) Basophils (%) (Auto) 0.6% (0-3) Sodium Level 141mEq/L (134-144) Potassium Level 3.6mEq/L (3.5-5.2) Chloride Level 98mEq/L (97-108) Carbon Dioxide Level 28mmol/L (18-29) Blood Urea Nitrogen 14mg/dL (6-24) Creatinine 0.60mg/dL (0.76-1.27) Estimat Glomerular Filtration Rate 148mL/min (>59) Glucose Level 226mg/dL (60-99) Calcium Level 8.8mg/dL (8.5-10.1) Microbiology Results Strep mitis grew from toe 07/28, from blood 2 07/26 Discharge Medications Discharge Medications Atorvastatin Calcium (Atorvastatin Calcium) 20 Mg Tablet 20 MG PO HS (Reported) Gabapentin (Gabapentin) 300 Mg Capsule 900 MG PO TID (Reported) Glipizide (Glipizide) 10 Mg Tablet 10 MG PO BIDAC (Reported) Hydrochlorothiazide (Hydrochlorothiazide) 25 Mg Tablet 25 MG PO DAILY (Reported ) Insulin Glargine (Lantus U100 Insulin Vial) 100 Unit/Ml Vial 8 UNIT SUBQ HS Prescribed by: FINESSE PARRA MD Insulin Human Lispro (HumaLOG U100 Insulin Vial) 100 Unit/Ml Unit 2-10 UNIT SUBQ ACHS Check blood sugars before meals and at bedtime. Use correction factor only before meals. Blood Sugar Lispro Correction: <151, 0 units; 151-175, 1 unit; 176-200, 2 units; 201-225, 3 units; 226-250, 4 units; 251-275, 5 units; 276-300 , 6 units; 301-325, 7 units; 326-350, 8 units; 351-375, 9 units; 376-400, 10 units; >400, 12 units. Prescribed by: FINESSE PARRA MD Lisinopril (Lisinopril) 20 Mg Tablet 20 MG PO DAILY (Reported) Metformin (Glucophage) 1,000 Mg Tablet 1,000 MG PO BID (Reported) Metronidazole (Flagyl) 500 Mg Tablet 500 MG PO q12 Prescribed by: FINESSE PARRA MD As needed Ibuprofen (Ibuprofen) 600 Mg Tablet 600 MG PO Q6H PRN PRN For Pain Prescribed by: FINESSE PARRA MD Polyethylene Glycol 3350 (Miralax) 17 Gm Powd.pack 17 GM PO DAILY PRN PRN For Constipation Prescribed by: FINESSE PARRA MD Sennosides (Senna) 8.6 Mg Tablet 17.2 MG PO BID PRN PRN For Constipation Prescribed by: FINESSE PARRA MD oxyCODONE-Acetaminophen 5-325 mg (oxyCODONE-Acetaminophen 5-325 mg) 1 Each Tablet 1-2 TAB PO Q4H PRN PRN For Pain Prescribed by: FINESSE PARRA MD Followup Plan Disposition: Patient going home with home IV antibiotics but can go to [facility] while that is being arranged for daily ceftriaxone Follow-up plan Follow-up with podiatry within 72 hours for wound examination and dressing change and primary care provider call Discharge Diet: Heart Healthy, Diabetic Discharge Activity: Other (no weightbearing right foot) Patient Instructions Follow-up with podiatry within 72 hours for dressing changes. IV antibiotics daily through August 23 Follow-up Provider: Riley Hackett DPM Follow-up with PCP in: Other (72 hours) Provider: [facility] Follow-up in: Other (call) Time spent Greater than 30 minutes Finesse Parra MD Aug 01, 2016 11:41
[2016-08-01] MEDS: cefTRIAXone Inj 2,000 MG in Dextrose 5% Minibag Plus 50 ML IV SCH (12:37)
--- NOTE | 2016-08-01 14:21 | NUR ---
Social Work Readiness for Discharge: DORINDA acknowledged order for discharge. DORINDA discussed discharge plans of home with IV abx for Ceftriaxone q24 through 08/23/16. Patient payer as [place]. Patient states to assist with care and to provide support at home. Patient states being unable to report outpatient for IV abx therapy as a result to limited transport. Patient requesting [facility] services. DORINDA contacted [place] worker Anayeli, and Gala, to discuss discharge arrangements home. DORINDA left message for return call back. DORINDA contacted [place], [phone] and requested that orders be faxed to .[phone]. DORINDA faxed per request. DORINDA was advised that [place] has limited staffing due to snow at this time. DORINDA spoke to [employer] rep Ackerman, who was advised of order. [facility] to preemptively work with [place] to coordinate service arrangements. Access provided. Patient updated on IV abx arrangements pending status at this time until [place] approves. PLAN: Home with [facility] for IV abx, pending [place] approval. [employer] also working on case to assist with discharge home today Geovanny VILLATORO Addendum: 08/01/16 at 1630 by YAMILETH APARICIO DORINDA spoke to patient regarding frequent calls to [place] with no success. DORINDA spoke with patient at bedside regarding outpatient arrangements at [facility]. Patient states wanting to discharge home today with outpt arrangements at [facility] and determine if HH arrangements able to be established with [place]. DORINDA discussed possibilities of not obtaining approval from [place] if discharged home. Patient and aware and states plan to discharge home with outpt [facility] and DORINDA will continue to work with [place] for possible approval. DORINDA faxed orders to [facility]. Patient scheduled for outpt treatment tomorrow at 11am. PLAN: Home with outpt follow up for abx at [facility] tomorrow Dee Dee VILLATORO Addendum: 08/04/16 at 1538 by YAMILETH APARICIO Late entry: [place] [facility] services for IV abx via [facility] [employer] on 08/03. No other needs identified Dee Dee VILLATORO
--- NOTE | 2016-08-01 14:32 | NUR ---
Evaluation completed. Please go to "Notes" then click on "Assessments and Notes" (bottom left corner of screen). Then select appropriate discipline tab on top of screen.
--- NOTE | 2016-08-01 15:06 | PROG NOTE ---
[address] [address] PROGRESS NOTE PATIENT: MAURISIO MANCUSO : 1960 MR#: [id number] ADMIT: 07/26/2016 JOB ID: [id number] DATE: 08/01/2016 INFECTIOUS DISEASE FOLLOWUP: REASON FOR FOLLOWUP: Osteomyelitis. INTERVAL HISTORY: The patient has done well over the weekend. He denies any fevers, chills, or sweats. He has no pain at the site of his amputated great toe. No pulmonary or GI symptoms. PHYSICAL EXAMINATION: Reveals an afebrile gentleman, temp 36.7, pulse 84, respiratory rate 18, blood pressure 154/84. He is in no acute distress. His lungs are clear. Cardiac tones sharp. The new PICC line is present in the left upper extremity and looks benign. Abdomen soft and nontender. His amputated toe site is wrapped in a large postop dressing. LABORATORIES: Include a white count of 5200 yesterday, creatinine 0.6. No new micro is available. The followup blood cultures done on the and are negative. Recall that our initial cultures grew Strep mitis from blood and the wound. IMPRESSION: Diabetic gentleman with rapidly progressive Streptococcus mitis osteomyelitis of his right great toe, now status post amputation. Because of concerns that this infection may extend to the rest of the foot or the rest of the proximal part of the foot anyway, we are going to continue to treat for a prolonged course. RECOMMENDATIONS: 1. Ceftriaxone 2 g a day through August 23, using the PICC line. 2. Flagyl 500 q. through August 09 by the oral route. 3. I have written home health orders. 4. This case discussed in person this morning with the hospitalist. I am going to sign off now on this case.
--- NOTE | 2016-08-01 16:22 | PATH ---
SURGICAL PATHOLOGY Attending Physician:Fredy Brush DPM CASE STATUS: Signed Out PATIENT NAME: MAURISIO MANCUSO PID: [id number] : 1960 DATE COLLECTED:07/28/2016 00:00 SPECIMEN: Toe(s), Amputation, Non-Traumatic CLINICAL HISTORY: SEPSIS, DIABETIC FOOT 1). RIGHT GREAT TOE, OSTEOMYELITIS FINAL DIAGNOSIS: 1.RIGHT GREAT TOE, AMPUTATION: TOE WITH SKIN ULCERATION, MARKED ACTIVE INFLAMMATION OF SKIN AND SUBCUTANEOUS TISSUE, AND OSTEOMYELITIS. NO EVIDENCE OF MALIGNANCY. ICD10 CODE M86.9 GROSS DESCRIPTION: The specimen is received in formalin, labeled with the patient's name, sublabeled as right great toe osteomyelitis and consists of a disarticulated toe (6.4 cm AP, 3.4 cm SI, 3.5 cm ML). The toenail is present. The skin areas wiggins-white and yellow and contains an open ulcer (1.0 x 0.8 cm) on the inferior posterior-medial aspect, 0.2 cm from the inferomedial resection margin. The ulcer is 2.4 cm from the resection margin and 3.2 cm from the bone articular surface. The surrounding skin is firm and partially flaky. The proximal bone is thapa-white and hard with focally wiggins soft areas. The bone cannot be sliced completely through with a scalpel. The underlying bone is thapa-red soft, hemorrhagic and easily sliced with a scalpel. Ink code: The purple-medial; blue-lateral. Section code: (A) skin and soft tissue resection margins, medical device sales representative; (B) bone articular surface; (C) ulcer, medical device sales representative; (D) bone underlying ulcer. Note: The blood sections have been decalcified. 07/29/16 MICRO DESCRIPTION: See diagnosis. ICD-9 CODES: CPT CODES: 1: 72255 Electronically Signed Out Gala Gonzalez MD [facility] [address], [place] [address] Technical component performed at [facility], [address] [place] [address] Ave[address], [place], [address]
--- NOTE | 2016-08-01 19:10 | NUR ---
Discharge note- Patient complained of headache and pain med given with good relief of discomfort. Right foot dressing dry and intact. Discharged to home with and personal belongings.
== END 2016-08-01 18:15 | disposition home or self-care (01) | DRG 854 ==
LOC: EDBD 15:32 → SED 15:32 → PCC 21:06 → OSC 07-28 17:16
PROVIDERS: ADMIT Hospitalist; ATTEND Hospitalist
PROC: 0HDMXZZ Extraction of Right Foot Skin, External Approach (ICD-10-PCS; 2016-07-28)
PROC: 0Y6P0Z0 Detachment at Right 1st Toe, Complete, Open Approach (ICD-10-PCS; principal; 2016-07-28 12:00)
DX: A40.8 Other streptococcal sepsis (principal); E87.2 Acidosis; M86.171 Other acute osteomyelitis, right ankle and foot; L97.419 Non-pressure chronic ulcer of right heel and midfoot with unspecified severity; I10 Essential (primary) hypertension; E11.40 Type 2 diabetes mellitus with diabetic neuropathy, unspecified; Z79.84 Long term (current) use of oral hypoglycemic drugs; Z87.891 Personal history of nicotine dependence; L03.031 Cellulitis of right toe; R65.20 Severe sepsis without septic shock; E11.65 Type 2 diabetes mellitus with hyperglycemia; E11.69 Type 2 diabetes mellitus with other specified complication